=== PATIENT | male | born 1940 | race Caucasian/White ===

== ENCOUNTER 2020-04-02 22:46 | Inpatient (IN) | payer OTHER, MEDICARE ==
[2020-04-02] MEDS ORDERED: DEXAMETHASONE SOD PHOSPHATE INJ 4 MG/1 ML VIAL IV ONE (22:59)
--- NOTE | 2020-04-02 23:00 | ER Document Report ---
ED General - General Chief Complaint: Shortness Of Breath Stated Complaint: SHORTNESS OF BREATH Time Seen by Provider: 04/02/20 22:52 Primary Care Provider: KAYE,BERTRAM [Primary Care Provider] - Follow up as needed - [facility] Notes: 79-year-old male presents with shortness of breath. Patient is Covid positive. Patient states that he developed symptoms on Monday night, he actually tested negative on Monday, then tested positive on Monday. He states that he is overall been doing fairly well, he has mostly been battling fever and shaking. He states that however tonight he was watching TV, had sudden onset of shaking and acute shortness of breath. He reports shortness of breath was better when he was sitting up. His cough is occasionally productive of a phlegm. EMS was called and found him to be 85% on room air, nonrebreather was applied and sats improved to 92 to 94%. Patient is a former smoker, he quit in 1989. He had a CABG in 1989, he also has hypertension and hyperlipidemia, he reports reports with his medications. No chest pain, abdominal pain, vomiting or diarrhea. He denies history of lung disease. Past Medical History - General Information source: Patient - Social History Smoking Status: Former Smoker Family History: Reviewed & Not Pertinent - Past Medical History Cardiac Medical History: Reports: Hx Coronary Artery Disease, Hx Hypercholesterolemia, Hx Hypertension Review of Systems - Review of Systems Constitutional: Chills, Fever EENT: No symptoms reported Cardiovascular: denies: Chest pain Respiratory: Cough, Short of breath Gastrointestinal: denies: Abdominal pain, Diarrhea, Nausea, Vomiting Genitourinary: No symptoms reported Male Genitourinary: No symptoms reported Musculoskeletal: No symptoms reported Skin: No symptoms reported Hematologic/Lymphatic: No symptoms reported Neurological/Psychological: No symptoms reported Physical Exam - Vital signs Vitals: Temp 99.2 F 04/02/20 22:47 - General General appearance: Alert - HEENT Head: Normocephalic, Atraumatic Extraocular movements intact: Yes Pupils: PERRL - Respiratory Respiratory status: Tachypnea Breath sounds: Nonproductive cough, Rhonchi - Bases - Cardiovascular Rhythm: Regular Heart sounds: Normal auscultation - Abdominal Inspection: Obese Tenderness: Nontender - Extremities General lower extremity: No: Edema - Neurological Neuro grossly intact: Yes Cognition: Normal Orientation: AAOx4 - Psychological Associated symptoms: Normal affect - Skin Skin Temperature: Warm Course - Re-evaluation Re-evalutation: 79-year-old male on approximately day 6 of Covid illness here for acute onset of shortness of breath tonight. Found to be hypoxic with EMS, sats improving with supplemental oxygen. Patient is alert and actually fairly well-appearing, he does have coarse rhonchi at bases. He is maintaining O2 saturations on 4 L nasal cannula. Suspect that his symptoms are due to known Covid infection. He denies chest pain at this time and EKG is nonischemic. Will start with IV Decadron. Check chest x-ray and Covid related labs. Patient will need admission. 04/03/20 01:21 Into check on patient, he looks clinically improved and states he is feeling much better. Discussed with him need for admission for Covid treatment given his hypoxia/new oxygen requirement No leukocytosis. No acute anemia. Mild lymphopia. Slight hyponatremia. Electrolytes otherwise okay. D-dimer, ferritin, LDH and CRP all elevated which goes with his known Covid infection. Patient does not appear to be vitamin D deficient. Chest x-ray with changes suggestive of Covid. 04/03/20 02:19 Discussed with the hospital service for admission. - Vital Signs Vital signs: Temp Pulse Resp BP Pulse Ox 99.2 F 74 24 H 139/54 H 93 04/02/20 22:47 04/03/20 01:19 04/03/20 01:19 04/03/20 01:19 04/03/20 01:19 - Laboratory Results Result Diagrams: 04/02/20 23:15 04/02/20 23:15 Laboratory Results Interpreted: 04/02/20 04/02/20 04/02/20 23:15 23:15 23:15 RBC 4.34 L Lymph % (Auto) 9.0 L Seg Neutrophils % 82.4 H D-Dimer Sodium 132.3 L Glucose 173 H Calcium 8.0 L Ferritin 630.00 H Lactate Dehydrogenase 406 H C-Reactive Protein 147.3 H Total Protein 6.2 L Albumin 3.3 L Vitamin D 25-Hydroxy 76.2 H 04/02/20 23:15 RBC Lymph % (Auto) Seg Neutrophils % D-Dimer 1.53 H Sodium Glucose Calcium Ferritin Lactate Dehydrogenase C-Reactive Protein Total Protein Albumin Vitamin D 25-Hydroxy Critical Laboratory Results Reviewed: No Critical Results - Radiology Results Critical Radiology Results Reviewed: No Critical Results - EKG Interpretation by Me Additional EKG results interpreted by me: EKG is interpreted by me. Sinus rhythm, rate 76. QRS 106, QTC within normal limits. Nonspecific ST changes. No STEMI. Discharge - Discharge Clinical Impression: Acute respiratory disease due to COVID-19 virus Disposition: ADMITTED INPATIENT Admitting Provider: [facility] Unit Admitted: Medical Floor [facility]errals: [facility] [[facility]] - Follow up as needed
[2020-04-02 23:28] LABS: ABSOLUTE LYMPHOCYTES (AUTO) 0.5 10^3/uL (0.5-4.7); ABSOLUTE MONOCYTES (AUTO) 0.4 10^3/uL (0.1-1.4); ABSOLUTE NEUT (AUTO) 4.4 10^3/uL (1.7-8.2); BASOPHILS % (AUTO) 0.7 % (0-2); HEMATOCRIT 39.8 % (37.9-51.0); HEMOGLOBIN 14.2 g/dL (13.5-17.0); MEAN CORPUSCULAR HEMOGLOBIN 32.6 pg (27.0-33.4); MEAN CORPUSCULAR HGB CONC 35.5 g/dL (32.0-36.0); MEAN CORPUSCULAR VOLUME 92 fl (80-97); MONOCYTES % (AUTO) 7.9 % (3-13); PLATELET COUNT 159 10^3/uL (150-450); RED BLOOD COUNT 4.34 10^6/uL (4.35-5.55); RED CELL DISTRIBUTION WIDTH 13.6 % (11.5-14.0); SEGMENTED NEUTROPHILS % (AUTO) 82.4 % (42-78); TOTAL CELLS COUNTED % (AUTO) 100 %; WHITE BLOOD COUNT 5.3 10^3/uL (4.0-10.5)
--- NOTE | 2020-04-02 23:29 | RADIOLOGY REPORT (SQ) ---
EXAM DESCRIPTION: Site: CHEST SINGLE VIEW RP: XR CHEST 1 VIEW CLINICAL HISTORY: 79 years Male; covid; COMPARISON: None. FINDINGS: Lungs: There are patchy alveolar/interstitial infiltrates in the right lung, mostly involving the right upper lobe. No focal consolidation. No pneumothorax or pleural effusion. Mediastinum: Sternal wires are noted. No mediastinal widening or shift. Bones: Bony structures are unremarkable. IMPRESSION: 1. Infiltrates, mostly involving right upper lobe, consistent with atypical/viral pneumonia
[2020-04-02 23:46] LABS: ALBUMIN 3.3 g/dL (3.5-5.0); ALKALINE PHOSPHATASE 64 U/L (38-126); ANION GAP 6 (5-19); ASPARTATE AMINO TRANSFERASE 57 U/L (17-59); BILIRUBIN,DIRECT 0.2 mg/dL (0.0-0.4); BILIRUBIN,TOTAL 0.4 mg/dL (0.2-1.3); BLOOD UREA NITROGEN 17 mg/dL (7-20); CARBON DIOXIDE 24 mmol/L (22-30); CHLORIDE 102 mmol/L (98-107); GLUCOSE 173 mg/dL (75-110); POTASSIUM 4.1 mmol/L (3.6-5.0); TOTAL PROTEIN 6.2 g/dL (6.3-8.2)
[2020-04-03 00:05] LABS: C-REACTIVE PROTEIN 147.3 mg/L (<10.0)
[2020-04-03 02:34] LABS: ARTERIAL BLOOD H2CO3 0.79 mmol/L (1.05-1.35); ARTERIAL BLOOD HCO3 17.4 mmol/L (20-24); ARTERIAL BLOOD O2 SATURATION 91.1 % (94-98); ARTERIAL BLOOD PCO2 26.3 mmHg (35-45); ARTERIAL BLOOD PH 7.44 (7.35-7.45); ARTERIAL BLOOD PO2 56.8 mmHg (80-100); ARTERIAL BLOOD TOTAL CO2 18.2 mmol/L (23-27)
[2020-04-03 02:36] LABS: ARTERIAL BLOOD FIO2 4L
[2020-04-03] MEDS ORDERED: PROMETHAZINE HCL INJ 25 MG/1 ML VIAL IV PRN (02:36)
[2020-04-03] MEDS ORDERED: AZITHROMYCIN 250 MG TABLET PO ONE (03:00)
[2020-04-03] MEDS ORDERED: ENOXAPARIN SODIUM INJ 100 MG/1 ML DISP.SYRIN SUBCUT ONE (03:00)
--- NOTE | 2020-04-03 03:01 | PDOC H&P ---
History of Present Illness Admission Date/PCP: 04/03/20 02:26 [facility] Patient complains of: Shortness of breath History of Present Illness: DELL DUMONT is a 79 year old male with a history of hypertension, hyperlipidemia, CAD status post CABG in the 90s who now presents with 5 days duration of fever, chills, generalized body aches. He states that he was tested for COVID-19 on 03/2018 and was positive. 3 days back he started having shortness of breath which progressively got worse. Also reports associated cough productive of scanty whitish sputum. He denies any chest pain, palpitation, nausea, vomiting, abdominal pain, diarrhea. Patient was found to be saturating 85% by EMS and currently is requiring 4 L intranasal oxygen to saturate 92 to 94%. Past Medical History Cardiac Medical History: Reports: Coronary Artery Disease, Hyperlipidema, Hypertension Social History Information Source: Patient Smoking Status: Former Smoker Frequency of Alcohol Use: None Hx Recreational Drug Use: Yes Drugs: None - Advance Directive Resuscitation Status: Full Code Family History Family History: Reviewed & Not Pertinent Parental Family History Reviewed: Yes Children Family History Reviewed: Yes Sibling(s) Family History Reviewed.: Yes Review of Systems Constitutional: PRESENT: as per HPI, fever(s). ABSENT: chills, headache(s), weight gain, weight loss Eyes: ABSENT: visual disturbances Ears: ABSENT: hearing changes Cardiovascular: PRESENT: as per HPI, dyspnea on exertion, edema. ABSENT: chest pain, orthropnea, palpitations Respiratory: PRESENT: as per HPI Gastrointestinal: ABSENT: abdominal pain, constipation, diarrhea, hematemesis, hematochezia, nausea, vomiting Genitourinary: ABSENT: dysuria, hematuria Musculoskeletal: ABSENT: joint swelling Integumentary: ABSENT: rash, wounds Neurological: ABSENT: abnormal gait, abnormal speech, confusion, dizziness, focal weakness, syncope Psychiatric: ABSENT: anxiety, depression, homidical ideation, suicidal ideation Endocrine: ABSENT: cold intolerance, heat intolerance, polydipsia, polyuria Hematologic/Lymphatic: ABSENT: easy bleeding, easy bruising Physical Exam Vital Signs: Temp Pulse Resp BP Pulse Ox 99.2 F 74 24 H 139/54 H 93 04/02/20 22:47 04/03/20 01:19 04/03/20 01:19 04/03/20 01:19 04/03/20 01:19 Intake & Output 04/01/20 04/02/20 04/03/20 06:59 06:59 06:59 Weight 97.522 kg Additional comments: GENERAL APPEARANCE: Alert and oriented x3, currently on 4 L intranasal oxygen saturating 92% HEENT: Normocephalic and atraumatic. No scleral icterus. Moist oral mucosa NECK: Supple. No lymphadenopathy or tenderness. No JVD CHEST: Symmetric. Nontender to palpation. LUNGS: Has good air entry, has crackles in the right middle and upper lung field. No wheezing appreciated HEART: Regular rate and rhythm with normal S1 and S2. No murmurs, gallops, or rubs. ABDOMEN: soft, active bowel sounds, no direct or rebound tenderness. No organomegaly detected. EXTREMITIES: No cyanosis, clubbing, or edema. MUSCULOSKELETAL: No deformity, atrophy or swelling noted PSYCHIATRIC: Recent and remote memory is intact. Appropriate mood and affect. SKIN: Warm, dry, and well perfused. No lesions or rashes are noted. NEUROLOGIC: No focal sensory or motor deficits are noted. Results Laboratory Results: 04/02/20 23:15 04/02/20 23:15 04/02/20 04/02/20 04/03/20 23:15 23:15 02:28 WBC 5.3 RBC 4.34 L Hgb 14.2 Hct 39.8 MCV 92 MCH 32.6 MCHC 35.5 RDW 13.6 Plt Count 159 Seg Neutrophils % 82.4 H Carbonic Acid 0.79 L HCO3/H2CO3 Ratio 22:1 ABG pH 7.44 ABG pCO2 26.3 L ABG pO2 56.8 L ABG HCO3 17.4 L ABG O2 Saturation 91.1 L ABG Base Excess -5.0 FiO2 4L Sodium 132.3 L Potassium 4.1 Chloride 102 Carbon Dioxide 24 Anion Gap 6 BUN 17 Creatinine 1.11 Est GFR ( Amer) > 60 Glucose 173 H Calcium 8.0 L Ferritin 630.00 H Total Bilirubin 0.4 AST 57 Alkaline Phosphatase 64 C-Reactive Protein 147.3 H Total Protein 6.2 L Albumin 3.3 L Impressions: Chest X-Ray 04/02/20 22:58 IMPRESSION: 1. Infiltrates, mostly involving right upper lobe, consistent with atypical/viral pneumonia Assessment and Plan - Diagnosis (1) Acute respiratory failure with hypoxia Is this a current diagnosis for this admission?: Yes Plan: Presents with shortness of breath Oxygen saturation was 85% on room initial evaluation Tested positive for COVID-19 on 03/30 Currently breathing comfortably and saturating mid 90s on 4 L intranasal oxygen Started on dexamethasone, status post ivermectin, zinc, vitamin C, vitamin D Will be started on remdesivir in the morning Closely monitor for any deterioration in his respiratory status (2) Pneumonia due to COVID-19 virus Is this a current diagnosis for this admission?: Yes Plan: Started having symptoms 5 days back and tested positive on 03/30 Currently presented with worsening of shortness of breath Ferritin, LDH, CRP and D-dimer all elevated Chest x-ray shows infiltrates involving right upper lobe Started him on therapeutic dose Lovenox Currently on dexamethasone, zinc, vitamin C, vitamin D First dose of ivermectin 21 mg was given Continue intranasal oxygen Will be started on remdesivir and convalescent plasma in the morning (3) Hyperlipemia Is this a current diagnosis for this admission?: Yes Plan: Continue statin therapy (4) CAD (coronary artery disease) Is this a current diagnosis for this admission?: Yes Plan: Currently denies any chest pain Continue aspirin and atorvastatin (5) Hx of CABG Is this a current diagnosis for this admission?: Yes Plan: Bypass surgery was done in the s Continue management as stated above under CAD (6) Hypertension Is this a current diagnosis for this admission?: Yes Plan: Blood pressure is within acceptable limits Continue home medications (7) Overweight (BMI 25.0-29.9) Is this a current diagnosis for this admission?: Yes - Time Time Spent with patient: 35 or more minutes Total Critical Time (Minutes): 45 Medications reviewed and adjusted accordingly: Yes Anticipated Discharge Disposition: Home, Self Care Anticipated Discharge Timeframe: within 72 hours - Inpatient Certification Based on my medical assessment, after consideration of the patient's comorbidities, presenting symptoms, or acuity I expect that the services needed warrant INPATIENT care.: Yes I certify that my determination is in accordance with my understanding of Medicare's requirements for reasonable and necessary INPATIENT services [42 CFR 412.3e].: Yes Medical Necessity: Failure to Improve With Outpatient Therapy, Need Close Monitoring Due to Risk of Patient Decompensation, Risk of Complication if Not Cared For in Hospital Post Hospital Care: D/C or Transfer Summary
[2020-04-03] MEDS ORDERED: IVERMECTIN 3 MG TABLET PO ONE (03:02)
[2020-04-03] MEDS ORDERED: IVERMECTIN 3 MG TABLET ONE (05:40)
[2020-04-03 07:43] LABS: ALBUMIN 3.7 g/dL (3.5-5.0); ALKALINE PHOSPHATASE 72 U/L (38-126); ANION GAP 11 (5-19); ASPARTATE AMINO TRANSFERASE 67 U/L (17-59); BILIRUBIN,DIRECT 0.3 mg/dL (0.0-0.4); BILIRUBIN,TOTAL 0.5 mg/dL (0.2-1.3); BLOOD UREA NITROGEN 16 mg/dL (7-20); CALCIUM 8.4 mg/dL (8.4-10.2); CARBON DIOXIDE 21 mmol/L (22-30); CHLORIDE 102 mmol/L (98-107); GLUCOSE 199 mg/dL (75-110); POTASSIUM 4.4 mmol/L (3.6-5.0); TOTAL PROTEIN 6.7 g/dL (6.3-8.2)
[2020-04-03] MEDS ORDERED: DEXTROSE 40% GEL 15 GM TUBE PO PRN ×2 (08:24)
[2020-04-03] MEDS ORDERED: GLUCAGON,HUMAN RECOMB 1 MG INJ IM PRN (08:24)
[2020-04-03] MEDS ORDERED: DEXTROSE 50%-WATER 25 GM/50 ML DISP.SYRIN IV PRN ×2 (08:24)
--- NOTE | 2020-04-03 08:50 | EKG REPORT ---
SEVERITY:- ABNORMAL ECG - SINUS RHYTHM PROBABLE INFERIOR INFARCT, AGE INDETERMINATE : Confirmed by: Josr Chirinos MD 03-Apr-2020 08:50:08
[2020-04-03 10:47] LABS: ABSOLUTE LYMPHOCYTES (AUTO) 0.6 10^3/uL (0.5-4.7); ABSOLUTE MONOCYTES (AUTO) 0.5 10^3/uL (0.1-1.4); ABSOLUTE NEUT (AUTO) 4.5 10^3/uL (1.7-8.2); BASOPHILS % (AUTO) 0.4 % (0-2); HEMATOCRIT 42.1 % (37.9-51.0); HEMOGLOBIN 14.7 g/dL (13.5-17.0); LYMPHOCYTES % (AUTO) 9.9 % (13-45); MEAN CORPUSCULAR HEMOGLOBIN 32.3 pg (27.0-33.4); MEAN CORPUSCULAR HGB CONC 34.9 g/dL (32.0-36.0); MEAN CORPUSCULAR VOLUME 92 fl (80-97); MONOCYTES % (AUTO) 8.9 % (3-13); RED BLOOD COUNT 4.56 10^6/uL (4.35-5.55); RED CELL DISTRIBUTION WIDTH 13.6 % (11.5-14.0); SEGMENTED NEUTROPHILS % (AUTO) 80.8 % (42-78); TOTAL CELLS COUNTED % (AUTO) 100 %; WHITE BLOOD COUNT 5.6 10^3/uL (4.0-10.5)
[2020-04-03 11:07] LABS: PLATELET COUNT 121 10^3/uL (150-450)
[2020-04-03] MEDS: ASCORBIC ACID 500 MG TABLET PO SCH ×2 (11:11→17:32)
[2020-04-03] MEDS: FAMOTIDINE 20 MG TABLET PO SCH ×2 (11:11→21:35)
[2020-04-03] MEDS: ZINC SULFATE 220 MG CAPSULE PO SCH (11:11)
[2020-04-03] MEDS: DEXAMETHASONE SOD PHOS INJ 10 MG/1 ML VIAL IV SCH (11:11)
[2020-04-03] MEDS: CEFTRIAXONE 1 GM/D5W RTU 1 GM/50 ML RTUPB IV SCH (11:11)
[2020-04-03] MEDS: CHOLECALCIFEROL (D3) 1,000 UNIT (25 MCG) TABLET PO SCH (11:11)
[2020-04-03] MEDS: INSULIN LISPRO 100 UNIT/ML 3 ML VIAL SUBCUT SCH ×3 (14:22→21:35)
[2020-04-03] MEDS: AZITHROMYCIN 250 MG TABLET PO SCH (21:35)
[2020-04-03] MEDS: ENOXAPARIN SODIUM INJ 100 MG/1 ML DISP.SYRIN SUBCUT SCH (21:36)
[2020-04-04 06:25] LABS: ABSOLUTE LYMPHOCYTES (AUTO) 0.6 10^3/uL (0.5-4.7); ABSOLUTE MONOCYTES (AUTO) 0.7 10^3/uL (0.1-1.4); ABSOLUTE NEUT (AUTO) 6.2 10^3/uL (1.7-8.2); BASOPHILS % (AUTO) 0.6 % (0-2); EOSINOPHILS % (AUTO) 0.1 % (0-6); HEMOGLOBIN 14.2 g/dL (13.5-17.0); LYMPHOCYTES % (AUTO) 8.6 % (13-45); MEAN CORPUSCULAR HEMOGLOBIN 32.1 pg (27.0-33.4); MEAN CORPUSCULAR HGB CONC 34.7 g/dL (32.0-36.0); MEAN CORPUSCULAR VOLUME 93 fl (80-97); MONOCYTES % (AUTO) 8.9 % (3-13); PLATELET COUNT 188 10^3/uL (150-450); RED BLOOD COUNT 4.42 10^6/uL (4.35-5.55); RED CELL DISTRIBUTION WIDTH 13.9 % (11.5-14.0); SEGMENTED NEUTROPHILS % (AUTO) 81.8 % (42-78); TOTAL CELLS COUNTED % (AUTO) 100 %; WHITE BLOOD COUNT 7.5 10^3/uL (4.0-10.5)
[2020-04-04 06:55] LABS: ALBUMIN 3.5 g/dL (3.5-5.0); ALKALINE PHOSPHATASE 52 U/L (38-126); ANION GAP 12 (5-19); ASPARTATE AMINO TRANSFERASE 87 U/L (17-59); BILIRUBIN,DIRECT 0.3 mg/dL (0.0-0.4); BILIRUBIN,TOTAL 0.7 mg/dL (0.2-1.3); BLOOD UREA NITROGEN 23 mg/dL (7-20); CALCIUM 8.4 mg/dL (8.4-10.2); CARBON DIOXIDE 20 mmol/L (22-30); CHLORIDE 103 mmol/L (98-107); GLUCOSE 135 mg/dL (75-110); POTASSIUM 4.7 mmol/L (3.6-5.0); TOTAL PROTEIN 6.6 g/dL (6.3-8.2)
[2020-04-04] MEDS: INSULIN LISPRO 100 UNIT/ML 3 ML VIAL SUBCUT SCH ×4 (09:13→21:12)
[2020-04-04] MEDS: DEXAMETHASONE SOD PHOS INJ 10 MG/1 ML VIAL IV SCH (11:07)
[2020-04-04] MEDS: CHOLECALCIFEROL (D3) 1,000 UNIT (25 MCG) TABLET PO SCH (11:07)
[2020-04-04] MEDS: ZINC SULFATE 220 MG CAPSULE PO SCH (11:07)
[2020-04-04] MEDS: ASCORBIC ACID 500 MG TABLET PO SCH ×2 (11:07→17:00)
[2020-04-04] MEDS: FAMOTIDINE 20 MG TABLET PO SCH ×2 (11:07→21:12)
[2020-04-04] MEDS: ENOXAPARIN SODIUM INJ 100 MG/1 ML DISP.SYRIN SUBCUT SCH ×2 (11:08→21:11)
[2020-04-04] MEDS: CEFTRIAXONE 1 GM/D5W RTU 1 GM/50 ML RTUPB IV SCH (11:08)
[2020-04-04 15:13] LABS: ARTERIAL BLOOD BASE EXCESS -1.6 mmol/L; ARTERIAL BLOOD O2 SATURATION 96.6 % (94-98); ARTERIAL BLOOD PCO2 26.6 mmHg (35-45); ARTERIAL BLOOD TOTAL CO2 20.9 mmol/L (23-27)
[2020-04-04 15:14] LABS: ARTERIAL BLOOD FIO2 100%
--- NOTE | 2020-04-04 17:21 | PDOC PROGRESS REPORT ---
Subjective Date:: 04/04/20 Subjective:: RAFAELAO. He has had progressively increasing O2 needs over the last 48 hours. Reason For Visit: ACUTE HYPOXIC RESPIRATORY FAILURE,PNEUMONIA Physical Exam Vital Signs: Temp Pulse Resp BP Pulse Ox 98.8 F 86 18 134/55 H 91 L 04/04/20 16:09 04/04/20 16:09 04/04/20 16:09 04/04/20 16:09 04/04/20 16:09 Intake & Output 04/03/20 04/04/20 04/05/20 06:59 06:59 06:59 Intake Total 2367 520 Output Total 600 500 Balance 1767 20 Weight 97.522 kg 97.6 kg General appearance: PRESENT: no acute distress, cooperative Head exam: PRESENT: atraumatic Eye exam: ABSENT: scleral icterus Mouth exam: PRESENT: dry mucosa Throat exam: ABSENT: post pharyngeal erythema Neck exam: ABSENT: JVD Respiratory exam: PRESENT: rhonchi, tachypnea. ABSENT: crackles, wheezes Cardiovascular exam: PRESENT: RRR GI/Abdominal exam: PRESENT: normal bowel sounds, soft. ABSENT: tenderness Gentrourinary exam: ABSENT: indwelling catheter Extremities exam: ABSENT: pedal edema Musculoskeletal exam: PRESENT: ambulatory Neurological exam: PRESENT: alert, awake, oriented to person, oriented to place, oriented to time, oriented to situation Psychiatric exam: PRESENT: appropriate affect Skin exam: ABSENT: jaundice, rash Results Laboratory Results: 04/04/20 06:16 04/04/20 06:16 04/04/20 04/04/20 04/04/20 06:16 06:16 14:20 WBC 7.5 RBC 4.42 Hgb 14.2 Hct 41.0 MCV 93 MCH 32.1 MCHC 34.7 RDW 13.9 Plt Count 188 Seg Neutrophils % 81.8 H Carbonic Acid 0.80 L HCO3/H2CO3 Ratio 25:1 ABG pH 7.50 H ABG pCO2 26.6 L ABG pO2 78.0 L ABG HCO3 20.0 ABG O2 Saturation 96.6 ABG Base Excess -1.6 FiO2 100% Sodium 134.5 L Potassium 4.7 Chloride 103 Carbon Dioxide 20 L Anion Gap 12 BUN 23 H Creatinine 0.93 Est GFR ( Amer) > 60 Glucose 135 H Calcium 8.4 Total Bilirubin 0.7 AST 87 H Alkaline Phosphatase 52 Total Protein 6.6 Albumin 3.5 Impressions: Chest X-Ray 04/02/20 22:58 IMPRESSION: 1. Infiltrates, mostly involving right upper lobe, consistent with atypical/viral pneumonia Assessment and Plan - Diagnosis (1) Elevated AST (SGOT) Is this a current diagnosis for this admission?: Yes (2) Pre-diabetes Is this a current diagnosis for this admission?: Yes (3) Acute respiratory disease due to COVID-19 virus Is this a current diagnosis for this admission?: Yes (4) Acute respiratory failure with hypoxia Is this a current diagnosis for this admission?: Yes (5) CAD (coronary artery disease) Is this a current diagnosis for this admission?: Yes (6) Hx of CABG Is this a current diagnosis for this admission?: Yes (7) Hyperlipemia Is this a current diagnosis for this admission?: Yes (8) Hypertension Is this a current diagnosis for this admission?: Yes (9) Overweight (BMI 25.0-29.9) Is this a current diagnosis for this admission?: Yes (10) Pneumonia due to COVID-19 virus Is this a current diagnosis for this admission?: Yes - Plan Summary Summary: DELL DUMONT is a 79 year old male with PMH of hypertension, hyperlipidemia, CAD status post CABG in the s who presented on 04/02/2020 with 5 days duration of fever, chills, generalized body aches and 3 days of worsening SOB and productive cough. He had already been tested for Covid-19 several days prior to presentation and was positive. He denied any chest pain, palpitation, nausea, vo miting, abdominal pain, diarrhea. He was found to be saturating 85% on RA by EMS. RUL Pneumonia due to COVID-19 virus: CXR shows right upper lobe infiltrate - continue dexamethasone x10 days - continue ivermectin on days 1 and 3 - continue zinc, vitamin C, vitamin D and B-complex - Ferritin, LDH, CRP and D-dimer all elevate, will trend - continue therapeutic Lovenox Acute respiratory failure with hypoxemia: initially tested positive for COVID-19 on 03/30. He has had progressively increasing oxygen requirements throughout his hospital stay. - he remains hypoxic on 15 L O2 today, so will transition to high flow NC - repeat ABG in 1 hour CAD s/p CABG - continue aspirin and atorvastatin Hypertension: BP is within acceptable limits - continue home medications Pre-diabetes: HbA1c 5.7% - carb controlled diet - encourage weight loss LFT Elevated: AST increasing steadily, likely due to viral infection. He denies ETOH use. If continued rise, may need to hold statin. - monitor CMP daily - Time Time Spent with patient: 35 or more minutes Anticipated Discharge Disposition: Home with Home Health Anticipated Discharge Timeframe: within 72 hours
[2020-04-04 18:38] LABS: ARTERIAL BLOOD BASE EXCESS -2.2 mmol/L; ARTERIAL BLOOD H2CO3 0.82 mmol/L (1.05-1.35); ARTERIAL BLOOD HCO3 19.7 mmol/L (20-24); ARTERIAL BLOOD O2 SATURATION 91.8 % (94-98); ARTERIAL BLOOD PCO2 27.2 mmHg (35-45); ARTERIAL BLOOD PH 7.48 (7.35-7.45); ARTERIAL BLOOD PO2 56.4 mmHg (80-100); ARTERIAL BLOOD TOTAL CO2 20.5 mmol/L (23-27)
[2020-04-04 18:39] LABS: ARTERIAL BLOOD FIO2 75%
[2020-04-04] MEDS: ATORVASTATIN CALCIUM 40 MG TABLET PO SCH (21:12)
[2020-04-04] MEDS: AZITHROMYCIN 250 MG TABLET PO SCH (21:12)
[2020-04-05] MEDS: LEVOTHYROXINE SODIUM 0.05 MG TABLET PO SCH (05:14)
[2020-04-05 07:24] LABS: ABSOLUTE BASOPHILS # (AUTO) 0.2 10^3/uL (0.0-0.2); ABSOLUTE MONOCYTES (AUTO) 0.6 10^3/uL (0.1-1.4); BASOPHILS % (AUTO) 1.9 % (0-2); HEMATOCRIT 41.8 % (37.9-51.0); HEMOGLOBIN 14.3 g/dL (13.5-17.0); LYMPHOCYTES % (AUTO) 10.4 % (13-45); MEAN CORPUSCULAR HEMOGLOBIN 31.7 pg (27.0-33.4); MEAN CORPUSCULAR HGB CONC 34.1 g/dL (32.0-36.0); MEAN CORPUSCULAR VOLUME 93 fl (80-97); MONOCYTES % (AUTO) 6.1 % (3-13); RED CELL DISTRIBUTION WIDTH 13.8 % (11.5-14.0); SEGMENTED NEUTROPHILS % (AUTO) 81.6 % (42-78); TOTAL CELLS COUNTED % (AUTO) 100 %; WHITE BLOOD COUNT 9.8 10^3/uL (4.0-10.5)
[2020-04-05 07:33] LABS: ALBUMIN 3.2 g/dL (3.5-5.0); ALKALINE PHOSPHATASE 67 U/L (38-126); ASPARTATE AMINO TRANSFERASE 100 U/L (17-59); BILIRUBIN,DIRECT 0.2 mg/dL (0.0-0.4); BILIRUBIN,TOTAL 0.7 mg/dL (0.2-1.3); BLOOD UREA NITROGEN 28 mg/dL (7-20); CALCIUM 8.3 mg/dL (8.4-10.2); CARBON DIOXIDE 19 mmol/L (22-30); GLUCOSE 144 mg/dL (75-110); POTASSIUM 4.5 mmol/L (3.6-5.0); TOTAL PROTEIN 6.3 g/dL (6.3-8.2)
[2020-04-05 07:45] LABS: ANION GAP 9 (5-19); CHLORIDE 105 mmol/L (98-107)
[2020-04-05] MEDS ORDERED: IVERMECTIN 3 MG TABLET PO SCH (08:00)
[2020-04-05 08:22] LABS: PLATELET COUNT 218 10^3/uL (150-450)
[2020-04-05] MEDS: INSULIN LISPRO 100 UNIT/ML 3 ML VIAL SUBCUT SCH ×4 (08:37→21:47)
[2020-04-05 09:35] LABS: ARTERIAL BLOOD BASE EXCESS -0.2 mmol/L; ARTERIAL BLOOD H2CO3 0.85 mmol/L (1.05-1.35); ARTERIAL BLOOD HCO3 21.7 mmol/L (20-24); ARTERIAL BLOOD O2 SATURATION 93.6 % (94-98); ARTERIAL BLOOD PCO2 28.2 mmHg (35-45); ARTERIAL BLOOD PO2 60.4 mmHg (80-100); ARTERIAL BLOOD TOTAL CO2 22.6 mmol/L (23-27)
[2020-04-05] MEDS: ASCORBIC ACID 500 MG TABLET PO SCH ×2 (10:58→17:01)
[2020-04-05] MEDS: FAMOTIDINE 20 MG TABLET PO SCH ×2 (10:58→21:48)
[2020-04-05] MEDS: ZINC SULFATE 220 MG CAPSULE PO SCH (10:58)
[2020-04-05] MEDS: CEFTRIAXONE 1 GM/D5W RTU 1 GM/50 ML RTUPB IV SCH (10:59)
[2020-04-05] MEDS: DEXAMETHASONE SOD PHOS INJ 10 MG/1 ML VIAL IV SCH (10:59)
[2020-04-05] MEDS: CHOLECALCIFEROL (D3) 1,000 UNIT (25 MCG) TABLET PO SCH (10:59)
[2020-04-05] MEDS: ENOXAPARIN SODIUM INJ 100 MG/1 ML DISP.SYRIN SUBCUT SCH ×2 (11:00→21:49)
[2020-04-05] MEDS ORDERED: FUROSEMIDE INJ/PF 20 MG/2 ML SDV IV ONE (16:30)
--- NOTE | 2020-04-05 19:03 | PDOC PROGRESS REPORT ---
Subjective Date:: 04/05/20 Subjective:: He is becoming more SOB and has increased WOB. Desaturates when lying down in bed but feels more comfortable sitting upright in recliner. Reason For Visit: ACUTE HYPOXIC RESPIRATORY FAILURE,PNEUMONIA Physical Exam Vital Signs: Temp Pulse Resp BP Pulse Ox 98.7 F 74 20 130/54 H 95 04/05/20 16:30 04/05/20 16:30 04/05/20 16:30 04/05/20 16:30 04/05/20 16:30 Intake & Output 04/04/20 04/05/20 04/06/20 06:59 06:59 06:59 Intake Total 2367 950 830 Output Total 008 580 6538 Balance 9560 -7 -032 Weight 97.6 kg 97 kg General appearance: PRESENT: no acute distress, cooperative Eye exam: ABSENT: scleral icterus Mouth exam: PRESENT: moist Throat exam: ABSENT: post pharyngeal erythema Neck exam: ABSENT: JVD Respiratory exam: PRESENT: crackles, rhonchi, tachypnea. ABSENT: wheezes Cardiovascular exam: PRESENT: RRR GI/Abdominal exam: PRESENT: normal bowel sounds, soft. ABSENT: tenderness Gentrourinary exam: ABSENT: indwelling catheter Extremities exam: PRESENT: pedal edema Neurological exam: PRESENT: alert, awake, oriented to person, oriented to place, oriented to time, oriented to situation Psychiatric exam: PRESENT: appropriate affect Skin exam: ABSENT: jaundice Results Laboratory Results: 04/05/20 06:59 04/05/20 06:59 04/05/20 04/05/20 04/05/20 06:59 06:59 09:00 WBC 9.8 RBC 4.50 Hgb 14.3 Hct 41.8 MCV 93 MCH 31.7 MCHC 34.1 RDW 13.8 Plt Count 218 Seg Neutrophils % 81.6 H Carbonic Acid 0.85 L HCO3/H2CO3 Ratio 25:1 ABG pH 7.50 H ABG pCO2 28.2 L ABG pO2 60.4 L ABG HCO3 21.7 ABG O2 Saturation 93.6 L ABG Base Excess -0.2 FiO2 88% Sodium 133.2 L Potassium 4.5 Chloride 105 Carbon Dioxide 19 L Anion Gap 9 BUN 28 H Creatinine 0.94 Est GFR ( Amer) > 60 Glucose 144 H Calcium 8.3 L Total Bilirubin 0.7 AST 100 H Alkaline Phosphatase 67 Total Protein 6.3 Albumin 3.2 L Impressions: Chest X-Ray 04/02/20 22:58 IMPRESSION: 1. Infiltrates, mostly involving right upper lobe, consistent with atypical/viral pneumonia Assessment and Plan - Diagnosis (1) Elevated AST (SGOT) Is this a current diagnosis for this admission?: Yes (2) Pre-diabetes Is this a current diagnosis for this admission?: Yes (3) Acute respiratory disease due to COVID-19 virus Is this a current diagnosis for this admission?: Yes (4) Acute respiratory failure with hypoxia Is this a current diagnosis for this admission?: Yes (5) CAD (coronary artery disease) Is this a current diagnosis for this admission?: Yes (6) Hx of CABG Is this a current diagnosis for this admission?: Yes (7) Hyperlipemia Is this a current diagnosis for this admission?: Yes (8) Hypertension Is this a current diagnosis for this admission?: Yes (9) Overweight (BMI 25.0-29.9) Is this a current diagnosis for this admission?: Yes (10) Pneumonia due to COVID-19 virus Is this a current diagnosis for this admission?: Yes - Plan Summary Summary: DELL DUMONT is a 79 year old male with PMH of hypertension, hyperlipidemia, CAD status post CABG in the 90s who presented on 04/02/2020 with 5 days duration of fever, chills, generalized body aches and 3 days of worsening SOB and productive cough. He had already been tested for Covid-19 several days prior to presentation and was positive. He denied any chest pain, palpitation, nausea, vomiting, abdominal pain, diarrhea. He was found to be saturating 85% on RA by EMS. RUL Pneumonia due to COVID-19 virus: CXR shows right upper lobe infiltrate - continue dexamethasone x10 days - continue ivermectin on days 1 and 3 - continue zinc, vitamin C, vitamin D and B-complex - Ferritin, LDH, CRP and D-dimer all elevate, will trend - continue therapeutic Lovenox Acute respiratory failure with hypoxemia: initially tested positive for COVID-19 on 03/30. He has had progressively increasing oxygen requirements throughout his hospital stay. FiO2 maxed out on high flow NC today and now saturations are in the high 90s. I offered to transition to CPAP so he could sleep in bed, but he declined, saying he prefers to sit upright in the recliner instead. Orthopnea: he appears slightly volume overloaded on exam today. Will give a single dose of Lasix 20 mg IV and reassess tomorrow. CAD s/p CABG: continue aspirin and atorvastatin Hypertension: BP is within acceptable limits Pre-diabetes: HbA1c 5.7% - carb controlled diet - encourage weight loss LFT Elevated: likely due to viral infection. He denies ETOH use. If continued rise, may need to hold statin. - monitor CMP daily - Time Time Spent with patient: 35 or more minutes Anticipated Discharge Disposition: Home, Self Care Anticipated Discharge Timeframe: within 72 hours
[2020-04-05] MEDS: ATORVASTATIN CALCIUM 40 MG TABLET PO SCH (21:48)
[2020-04-05] MEDS: AZITHROMYCIN 250 MG TABLET PO SCH (21:48)
[2020-04-06] MEDS: LEVOTHYROXINE SODIUM 0.05 MG TABLET PO SCH (05:18)
[2020-04-06 07:05] LABS: ARTERIAL BLOOD BASE EXCESS -0.1 mmol/L; ARTERIAL BLOOD H2CO3 0.96 mmol/L (1.05-1.35); ARTERIAL BLOOD HCO3 22.8 mmol/L (20-24); ARTERIAL BLOOD O2 SATURATION 94.7 % (94-98); ARTERIAL BLOOD PH 7.47 (7.35-7.45); ARTERIAL BLOOD PO2 67.5 mmHg (80-100); ARTERIAL BLOOD TOTAL CO2 23.7 mmol/L (23-27)
[2020-04-06 07:08] LABS: ARTERIAL BLOOD FIO2 100%
[2020-04-06 07:15] LABS: ALKALINE PHOSPHATASE 79 U/L (38-126); ANION GAP 12 (5-19); ASPARTATE AMINO TRANSFERASE 90 U/L (17-59); BILIRUBIN,DIRECT 0.3 mg/dL (0.0-0.4); BILIRUBIN,TOTAL 0.9 mg/dL (0.2-1.3); BLOOD UREA NITROGEN 32 mg/dL (7-20); CALCIUM 8.6 mg/dL (8.4-10.2); CARBON DIOXIDE 22 mmol/L (22-30); CHLORIDE 101 mmol/L (98-107); GLUCOSE 158 mg/dL (75-110); POTASSIUM 4.4 mmol/L (3.6-5.0); TOTAL PROTEIN 6.6 g/dL (6.3-8.2)
[2020-04-06 07:23] LABS: HEMATOCRIT 40.1 % (37.9-51.0); MEAN CORPUSCULAR HEMOGLOBIN 32.3 pg (27.0-33.4); MEAN CORPUSCULAR HGB CONC 34.8 g/dL (32.0-36.0); MEAN CORPUSCULAR VOLUME 93 fl (80-97); RED BLOOD COUNT 4.33 10^6/uL (4.35-5.55); RED CELL DISTRIBUTION WIDTH 13.5 % (11.5-14.0); WHITE BLOOD COUNT 8.6 10^3/uL (4.0-10.5)
[2020-04-06 07:25] LABS: PLATELET COUNT 139 10^3/uL (150-450)
[2020-04-06 07:27] LABS: ALBUMIN 3.4 g/dL (3.5-5.0)
[2020-04-06] MEDS: INSULIN LISPRO 100 UNIT/ML 3 ML VIAL SUBCUT SCH ×4 (08:46→21:25)
[2020-04-06] MEDS: FAMOTIDINE 20 MG TABLET PO SCH ×2 (09:41→21:18)
[2020-04-06] MEDS: ASCORBIC ACID 500 MG TABLET PO SCH ×2 (09:41→17:01)
[2020-04-06] MEDS: DEXAMETHASONE SOD PHOS INJ 10 MG/1 ML VIAL IV SCH (09:41)
[2020-04-06] MEDS: CHOLECALCIFEROL (D3) 1,000 UNIT (25 MCG) TABLET PO SCH (09:42)
[2020-04-06] MEDS: CEFTRIAXONE 1 GM/D5W RTU 1 GM/50 ML RTUPB IV SCH (09:42)
[2020-04-06] MEDS: ENOXAPARIN SODIUM INJ 100 MG/1 ML DISP.SYRIN SUBCUT SCH ×2 (09:42→21:19)
[2020-04-06] MEDS: ZINC SULFATE 220 MG CAPSULE PO SCH (09:43)
[2020-04-06 13:25] LABS: APPEARANCE,URINE CLEAR; BILIRUBIN,URINE NEGATIVE (NEGATIVE); COLOR,URINE YELLOW; GLUCOSE, URINE NEGATIVE (NEGATIVE); KETONES,URINE NEGATIVE (NEGATIVE); LEUKOCYTE ESTERASE,URINE NEGATIVE (NEGATIVE); NITRITE,URINE NEGATIVE (NEGATIVE); PROTEIN,URINE 100 mg/dL (NEGATIVE); URINE SPECIFIC GRAVITY 1.021; UROBILINOGEN,URINE NEGATIVE mg/dL (<2.0)
--- NOTE | 2020-04-06 16:46 | PDOC PROGRESS REPORT ---
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 He states that he was tested for COVID- 19 on 03/2018 and was positive. 3 days back he started having shortness of breath which progressively got worse. Also reports associated cough productive of scanty whitish sputum. He denies any chest pain, palpitation, nausea, vomiting, abdominal pain, diarrhea. Patient was found to be saturating 85% by EMS and currently is requiring 4 L intranasal oxygen to saturate 92 to 94%. D4 hospital stay Patient was seen and examined at bedside. He is sitting on a recliner on HFNC 60L, 75% FIO2. He has dyspnea on exertion but he is otherwise stable. Reason For Visit: ACUTE HYPOXIC RESPIRATORY FAILURE,PNEUMONIA Physical Exam Vital Signs: Temp Pulse Resp BP Pulse Ox 97.9 F 82 17 123/55 L 94 04/06/20 11:53 04/06/20 14:00 04/06/20 16:00 04/06/20 11:53 04/06/20 16:00 Intake & Output 04/05/20 04/06/20 04/07/20 06:59 06:59 06:59 Intake Total 950 830 570 Output Total 951 2550 300 Balance -1 -1720 270 Weight 97 kg 98.1 kg General appearance: PRESENT: cooperative, other - moderate distress Head exam: PRESENT: atraumatic, normocephalic Eye exam: PRESENT: EOMI, PERRLA Mouth exam: PRESENT: moist Neck exam: PRESENT: full ROM Respiratory exam: PRESENT: rales, symmetrical, tachypnea Cardiovascular exam: PRESENT: RRR, +S1, +S2 Pulses: PRESENT: +2 pedal pulses bilateral GI/Abdominal exam: PRESENT: normal bowel sounds, soft. ABSENT: rebound, tenderness Extremities exam: PRESENT: full ROM Musculoskeletal exam: PRESENT: full ROM Neurological exam: PRESENT: alert, awake, oriented to person, oriented to place, oriented to time, oriented to situation Psychiatric exam: PRESENT: normal mood Skin exam: PRESENT: normal color Results Laboratory Results: 04/06/20 06:35 04/06/20 06:35 04/06/20 04/06/20 04/06/20 06:35 06:35 06:52 WBC 8.6 RBC 4.33 L Hgb 14.0 Hct 40.1 MCV 93 MCH 32.3 MCHC 34.8 RDW 13.5 Plt Count 139 L Carbonic Acid 0.96 L HCO3/H2CO3 Ratio 23:1 ABG pH 7.47 H ABG pCO2 32.0 L ABG pO2 67.5 L ABG HCO3 22.8 ABG O2 Saturation 94.7 ABG Base Excess -0.1 FiO2 100% Sodium 134.7 L Potassium 4.4 Chloride 101 Carbon Dioxide 22 Anion Gap 12 BUN 32 H Creatinine 0.97 Est GFR ( Amer) > 60 Glucose 158 H Calcium 8.6 Total Bilirubin 0.9 AST 90 H Alkaline Phosphatase 79 Total Protein 6.6 Albumin 3.4 L Urine Color Urine Appearance Urine pH Ur Specific [place] Urine Protein Urine Glucose (UA) Urine Ketones Urine Blood Urine Nitrite Ur Leukocyte Esterase Urine WBC (Auto) Urine RBC (Auto) 04/06/20 11:03 WBC RBC Hgb Hct MCV MCH MCHC RDW Plt Count Carbonic Acid HCO3/H2CO3 Ratio ABG pH ABG pCO2 ABG pO2 ABG HCO3 ABG O2 Saturation ABG Base Excess FiO2 Sodium Potassium Chloride Carbon Dioxide Anion Gap BUN Creatinine Est GFR ( Amer) Glucose Calcium Total Bilirubin AST Alkaline Phosphatase Total Protein Albumin Urine Color YELLOW Urine Appearance CLEAR Urine pH 6.0 Ur Specific [place] 1.021 Urine Protein 100 H Urine Glucose (UA) NEGATIVE Urine Ketones NEGATIVE Urine Blood NEGATIVE Urine Nitrite NEGATIVE Ur Leukocyte Esterase NEGATIVE Urine WBC (Auto) 1 Urine RBC (Auto) 0 Impressions: Chest X-Ray 04/02/20 22:58 IMPRESSION: 1. Infiltrates, mostly involving right upper lobe, consistent with atypical/viral pneumonia Assessment and Plan - Diagnosis (1) Acute respiratory failure with hypoxia Is this a current diagnosis for this admission?: Yes Plan: Presents with shortness of breath Oxygen saturation was 85% on room initial evaluation Tested positive for COVID-19 on 03/30 On BIpap 75% FIO2, 60L flow Started on dexamethasone, status post ivermectin, zinc, vitamin C, vitamin D patient has AST/ALT elevation so remdesivir is not an option Closely monitor for any deterioration in his respiratory status (2) Pneumonia due to COVID-19 virus Is this a current diagnosis for this admission?: Yes Plan: Started having symptoms 5 days back and tested positive on 03/30 Currently presented with worsening of shortness of breath Ferritin, LDH, CRP and D-dimer all elevated Chest x-ray shows infiltrates involving right upper lobe Started him on therapeutic dose Lovenox Currently on dexamethasone, zinc, vitamin C, vitamin D completed Ivermectin Continue BIPAP support (3) Hx of CABG Is this a current diagnosis for this admission?: Yes Plan: Bypass surgery was done in the Continue management as stated above under CAD (4) Hypertension Qualifiers: Hypertension type: essential hypertension Qualified Code(s): I10 - Essential (primary) hypertension Is this a current diagnosis for this admission?: Yes Plan: Blood pressure is within acceptable limits Continue home medications (5) Pre-diabetes Is this a current diagnosis for this admission?: Yes Plan: - carb controlled diet - A1C 5.7 (6) CAD (coronary artery disease) Qualifiers: Coronary Disease-Associated Artery/Lesion type: [place] artery Is this a current diagnosis for this admission?: Yes Plan: Currently denies any chest pain Continue aspirin and atorvastatin (7) Transaminitis Is this a current diagnosis for this admission?: Yes Plan: - likely 2/2 acute illness -AST 100>90, ALT 60>82 - CTM - Plan Summary Summary: y - Time Medications reviewed and adjusted accordingly: Yes Anticipated Discharge Disposition: Home with Home Health Anticipated Discharge Timeframe: TBD
[2020-04-06] MEDS: ATORVASTATIN CALCIUM 40 MG TABLET PO SCH (21:18)
[2020-04-06] MEDS: AZITHROMYCIN 250 MG TABLET PO SCH (21:18)
[2020-04-07] MEDS: LEVOTHYROXINE SODIUM 0.05 MG TABLET PO SCH (05:01)
[2020-04-07 05:21] LABS: HEMATOCRIT 39.3 % (37.9-51.0); HEMOGLOBIN 13.7 g/dL (13.5-17.0); MEAN CORPUSCULAR HGB CONC 34.7 g/dL (32.0-36.0); MEAN CORPUSCULAR VOLUME 92 fl (80-97); RED BLOOD COUNT 4.26 10^6/uL (4.35-5.55); RED CELL DISTRIBUTION WIDTH 13.5 % (11.5-14.0); WHITE BLOOD COUNT 9.2 10^3/uL (4.0-10.5)
[2020-04-07 05:39] LABS: ABSOLUTE LYMPHOCYTES# (MANUAL) 0.6 10^3/uL (0.5-4.7); ABSOLUTE MONOCYTES # (MANUAL) 0.6 10^3/uL (0.1-1.4); BASOPHILS % (MANUAL) 0 % (0-2); EOSINOPHILS % (MANUAL) 0 % (0-6); LYMPHOCYTES % (MANUAL) 6 % (13-45); MONOCYTES % (MANUAL) 7 % (3-13); SEGMENTED NEUTROPHILS % (MAN) 87 % (42-78); TOTAL CELLS COUNTED 100
[2020-04-07 05:42] LABS: OVALOCYTES SLIGHT; PLATELET CLUMPS PRESENT; PLATELET COMMENT ADEQUATE; POIKILOCYTOSIS SLIGHT; POLYCHROMASIA SLIGHT; TOXIC VACUOLATION PRESENT
[2020-04-07 05:45] LABS: PLATELET COUNT 263 10^3/uL (150-450)
[2020-04-07 06:41] LABS: ALBUMIN 3.8 g/dL (3.5-5.0); ALKALINE PHOSPHATASE 84 U/L (38-126); ANION GAP 10 (5-19); ASPARTATE AMINO TRANSFERASE 88 U/L (17-59); BILIRUBIN,DIRECT 0.3 mg/dL (0.0-0.4); BILIRUBIN,TOTAL 0.9 mg/dL (0.2-1.3); BLOOD UREA NITROGEN 35 mg/dL (7-20); CARBON DIOXIDE 25 mmol/L (22-30); CHLORIDE 102 mmol/L (98-107); GLUCOSE 158 mg/dL (75-110); POTASSIUM 4.5 mmol/L (3.6-5.0); TOTAL PROTEIN 7.3 g/dL (6.3-8.2)
[2020-04-07] MEDS: INSULIN LISPRO 100 UNIT/ML 3 ML VIAL SUBCUT SCH ×4 (09:07→22:09)
[2020-04-07] MEDS: FAMOTIDINE 20 MG TABLET PO SCH ×2 (09:50→22:08)
[2020-04-07] MEDS: ENOXAPARIN SODIUM INJ 100 MG/1 ML DISP.SYRIN SUBCUT SCH ×2 (09:50→22:08)
[2020-04-07] MEDS: CHOLECALCIFEROL (D3) 1,000 UNIT (25 MCG) TABLET PO SCH (09:50)
[2020-04-07] MEDS: CEFTRIAXONE 1 GM/D5W RTU 1 GM/50 ML RTUPB IV SCH (09:51)
[2020-04-07] MEDS: DEXAMETHASONE SOD PHOS INJ 10 MG/1 ML VIAL IV SCH (09:51)
[2020-04-07] MEDS: ASCORBIC ACID 500 MG TABLET PO SCH ×2 (09:51→17:33)
[2020-04-07] MEDS: ZINC SULFATE 220 MG CAPSULE PO SCH (09:52)
[2020-04-07] MEDS ORDERED: REMDESIVIR 200 MG in NORMAL SALINE 250 ML IV ONE (10:00)
--- NOTE | 2020-04-07 14:58 | PDOC PROGRESS REPORT ---
Subjective Date:: 04/07/20 Subjective:: DELL DUMONT is a 79 year old male with a history of hypertension, hyperlipide dylan, CAD status post CABG in the s who now presents with 5 days duration of fever, chills, generalized body aches. He states that he was tested for COVID- 19 on 03/2018 and was positive. 3 days back he started having shortness of breath which progressively got worse. Also reports associated cough productive of scanty whitish sputum. He denies any chest pain, palpitation, nausea, vomiting, abdominal pain, diarrhea. Patient was found to be saturating 85% by EMS and currently is requiring 4 L intranasal oxygen to saturate 92 to 94%. D4 hospital stay Patient was seen and examined at bedside. He is sitting on a recliner on HFNC 60L, 75% FIO2. He has dyspnea on exertion but he is otherwise stable. D5 Hospital stay Patient was seen and examined at bedside. No new complains, no significant improvement or worsening of his breathing status. Currently at 60L flow rate 86% FIO2. With dyspnea on exertion, none at rest. Minimal cough. Afebrile with good appetite. I was able to speak to his Deysi and their daughter over the phone. Reason For Visit: ACUTE HYPOXIC RESPIRATORY FAILURE,PNEUMONIA Physical Exam Vital Signs: Temp Pulse Resp BP Pulse Ox 98.1 F 79 24 H 140/78 H 95 04/07/20 08:05 04/07/20 08:05 04/07/20 12:21 04/07/20 08:05 04/07/20 08:18 Intake & Output 04/06/20 04/07/20 04/08/20 06:59 06:59 06:59 Intake Total 830 1810 Output Total 2550 1525 Balance -1720 285 Weight 98.1 kg 98.1 kg General appearance: PRESENT: cooperative, other - moderate distress Head exam: PRESENT: atraumatic, normocephalic Eye exam: PRESENT: EOMI, PERRLA Mouth exam: PRESENT: moist Neck exam: PRESENT: full ROM Cardiovascular exam: PRESENT: RRR, +S1, +S2 Pulses: PRESENT: +2 pedal pulses bilateral GI/Abdominal exam: PRESENT: normal bowel sounds, soft. ABSENT: rebound, tenderness Extremities exam: PRESENT: +2 edema Musculoskeletal exam: PRESENT: full ROM Neurological exam: PRESENT: alert, awake, oriented to person, oriented to place, oriented to time, oriented to situation Psychiatric exam: PRESENT: normal mood Skin exam: PRESENT: normal color Results Laboratory Results: 04/07/20 04:54 04/07/20 06:13 04/07/20 04/07/20 04/07/20 04:54 04:54 06:13 WBC 9.2 RBC 4.26 L Hgb 13.7 Hct 39.3 MCV 92 MCH 32.0 MCHC 34.7 RDW 13.5 Plt Count 263 Seg Neutrophils % Not Reportable Sodium Cancelled 136.8 L Potassium Cancelled 4.5 Chloride Cancelled 102 Carbon Dioxide Cancelled 25 Anion Gap Cancelled 10 BUN Cancelled 35 H Creatinine Cancelled 1.01 Est GFR ( Amer) Cancelled > 60 Est GFR (Non-Af Amer) Cancelled Glucose Cancelled 158 H Calcium Cancelled 9.0 Total Bilirubin Cancelled 0.9 AST Cancelled 88 H Alkaline Phosphatase Cancelled 84 Total Protein Cancelled 7.3 Albumin Cancelled 3.8 Impressions: Chest X-Ray 04/02/20 22:58 IMPRESSION: 1. Infiltrates, mostly involving right upper lobe, consistent with atypical/viral pneumonia Assessment and Plan - Diagnosis (1) Acute respiratory failure with hypoxia Is this a current diagnosis for this admission?: Yes Plan: Presents with shortness of breath Oxygen saturation was 85% on room initial evaluation Tested positive for COVID-19 on 03/30 On BIpap 85% FIO2, 60L flow Started on dexamethasone, status post ivermectin, zinc, vitamin C, vitamin D on remdesivir Closely monitor for any deterioration in his respiratory status (2) Pneumonia due to COVID-19 virus Is this a current diagnosis for this admission?: Yes Plan: Started having symptoms 5 days back and tested positive on 03/30 Currently presented with worsening of shortness of breath Ferritin, LDH, CRP and D-dimer all elevated Chest x-ray shows infiltrates involving right upper lobe Started him on therapeutic dose Lovenox Currently on dexamethasone, zinc, vitamin C, vitamin D completed Ivermectin Continue HFNC support wean as tolerated (3) Hx of CABG Is this a current diagnosis for this admission?: Yes Plan: Bypass surgery was done in the Continue management as stated above under CAD (4) Hypertension Qualifiers: Hypertension type: essential hypertension Qualified Code(s): I10 - Essential (primary) hypertension Is this a current diagnosis for this admission?: Yes Plan: Blood pressure is within acceptable limits Continue home medications (5) Pre-diabetes Is this a current diagnosis for this admission?: Yes Plan: - carb controlled diet - A1C 5.7 (6) CAD (coronary artery disease) Qualifiers: Coronary Disease-Associated Artery/Lesion type: [place] artery Is this a current diagnosis for this admission?: Yes Plan: Currently denies any chest pain Continue aspirin and atorvastatin (7) Transaminitis Is this a current diagnosis for this admission?: Yes Plan: - likely 2/2 acute illness -AST 100>90, ALT 60>82 - CTM - Plan Summary Summary: - Time Time Spent with patient: 25-34 minutes Medications reviewed and adjusted accordingly: Yes Anticipated Discharge Disposition: Home with Home Health Anticipated Discharge Timeframe: tbd
[2020-04-07] MEDS ORDERED: FUROSEMIDE INJ/PF 40 MG/4 ML SDV IV ONE ×2 (15:30→19:15)
[2020-04-07] MEDS ORDERED: FUROSEMIDE INJ/PF 40 MG/4 ML SDV ONE (18:57)
[2020-04-07] MEDS: AZITHROMYCIN 250 MG TABLET PO SCH (22:08)
[2020-04-07] MEDS: ATORVASTATIN CALCIUM 40 MG TABLET PO SCH (22:08)
[2020-04-07] MEDS ORDERED: MELATONIN 5 MG TABLET PO ONE (22:45)
[2020-04-08 04:57] LABS: HEMATOCRIT 43.2 % (37.9-51.0); HEMOGLOBIN 14.9 g/dL (13.5-17.0); MEAN CORPUSCULAR HEMOGLOBIN 32.1 pg (27.0-33.4); MEAN CORPUSCULAR HGB CONC 34.5 g/dL (32.0-36.0); MEAN CORPUSCULAR VOLUME 93 fl (80-97); RED BLOOD COUNT 4.64 10^6/uL (4.35-5.55); RED CELL DISTRIBUTION WIDTH 13.5 % (11.5-14.0); WHITE BLOOD COUNT 16.8 10^3/uL (4.0-10.5)
[2020-04-08 05:19] LABS: ALBUMIN 3.5 g/dL (3.5-5.0); ALKALINE PHOSPHATASE 104 U/L (38-126); ANION GAP 12 (5-19); ASPARTATE AMINO TRANSFERASE 151 U/L (17-59); BILIRUBIN,DIRECT 0.4 mg/dL (0.0-0.4); BILIRUBIN,TOTAL 1.1 mg/dL (0.2-1.3); BLOOD UREA NITROGEN 37 mg/dL (7-20); C-REACTIVE PROTEIN 27.9 mg/L (<10.0); CALCIUM 8.6 mg/dL (8.4-10.2); CARBON DIOXIDE 21 mmol/L (22-30); CHLORIDE 100 mmol/L (98-107); GLUCOSE 249 mg/dL (75-110); POTASSIUM 4.6 mmol/L (3.6-5.0); TOTAL PROTEIN 6.8 g/dL (6.3-8.2)
[2020-04-08 05:33] LABS: ABSOLUTE LYMPHOCYTES# (MANUAL) 0.3 10^3/uL (0.5-4.7); ABSOLUTE MONOCYTES # (MANUAL) 1.2 10^3/uL (0.1-1.4); BASOPHILS % (MANUAL) 0 % (0-2); EOSINOPHILS % (MANUAL) 1 % (0-6); LYMPHOCYTES % (MANUAL) 2 % (13-45); MONOCYTES % (MANUAL) 7 % (3-13); SEGMENTED NEUTROPHILS % (MAN) 90 % (42-78); TOTAL CELLS COUNTED 100
[2020-04-08 05:34] LABS: PLATELET CLUMPS PRESENT; PLATELET COMMENT ADEQUATE; PLATELET COUNT 357 10^3/uL (150-450); RBC MORPHOLOGY COMMENT NORMO-CYTIC/CHROMIC
[2020-04-08] MEDS: LEVOTHYROXINE SODIUM 0.05 MG TABLET PO SCH (05:41)
[2020-04-08] MEDS: CHOLECALCIFEROL (D3) 1,000 UNIT (25 MCG) TABLET PO SCH (09:58)
[2020-04-08] MEDS: DEXAMETHASONE SOD PHOS INJ 10 MG/1 ML VIAL IV SCH (09:58)
[2020-04-08] MEDS: REMDESIVIR 100 MG in NORMAL SALINE 250 ML IV SCH (10:00)
[2020-04-08] MEDS: ENOXAPARIN SODIUM INJ 100 MG/1 ML DISP.SYRIN SUBCUT SCH ×2 (10:03→22:17)
[2020-04-08] MEDS: INSULIN LISPRO 100 UNIT/ML 3 ML VIAL SUBCUT SCH ×4 (10:04→22:18)
[2020-04-08] MEDS: INSULIN GLARGINE,HUM.REC.ANLOG 1,000 UNIT/10 ML VIAL SUBCUT SCH ×2 (10:04→22:17)
[2020-04-08] MEDS: FAMOTIDINE 20 MG TABLET PO SCH ×2 (10:05→22:16)
[2020-04-08] MEDS: ASCORBIC ACID 500 MG TABLET PO SCH ×2 (10:10→17:11)
[2020-04-08] MEDS: ZINC SULFATE 220 MG CAPSULE PO SCH (10:11)
[2020-04-08] MEDS: ACETAMINOPHEN 325 MG TABLET PO PRN ×2 (10:30→22:19)
[2020-04-08] MEDS: SIMETHICONE 80 MG TAB.CHEW PO PRN ×2 (13:43→19:53)
[2020-04-08 14:29] LABS: APPEARANCE,URINE SLIGHTLY-CLOUDY; BILIRUBIN,URINE NEGATIVE (NEGATIVE); COLOR,URINE YELLOW; GLUCOSE, URINE >=500 mg/dL (NEGATIVE); KETONES,URINE NEGATIVE (NEGATIVE); LEUKOCYTE ESTERASE,URINE NEGATIVE (NEGATIVE); NITRITE,URINE NEGATIVE (NEGATIVE); PROTEIN,URINE 100 mg/dL (NEGATIVE); URINE SPECIFIC GRAVITY 1.024; UROBILINOGEN,URINE NEGATIVE mg/dL (<2.0)
--- NOTE | 2020-04-08 16:34 | PDOC PROGRESS REPORT ---
Subjective Date:: 04/08/20 Subjective:: DELL DUMONT is a 79 year old male with a history of hypertension, hyperlipide dylan, CAD status post CABG in the who now presents with 5 days duration of fever, chills, generalized body aches. He states that he was tested for COVID- 19 on 03/2018 and was positive. 3 days back he started having shortness of breath which progressively got worse. Also reports associated cough productive of scanty whitish sputum. He denies any chest pain, palpitation, nausea, vomiting, abdominal pain, diarrhea. Patient was found to be saturating 85% by EMS and currently is requiring 4 L intranasal oxygen to saturate 92 to 94%. D4 hospital stay Patient was seen and examined at bedside. He is sitting on a recliner on HFNC 60L, 75% FIO2. He has dyspnea on exertion but he is otherwise stable. D5 Hospital stay Patient was seen and examined at bedside. No new complains, no significant improvement or worsening of his breathing status. Currently at 60L flow rate 86% FIO2. With dyspnea on exertion, none at rest. Minimal cough. Afebrile with good appetite. I was able to speak to his Deysi and their daughter over the phone. D6 Hospital stay Patient was seen and examined at bedside. He was sitting comfortably in the recliner chair on HFNC saturating 99%. Flow decreased to 50L and he maintained his O2 sats. Otherwise no new complaints. Reason For Visit: ACUTE HYPOXIC RESPIRATORY FAILURE,PNEUMONIA Physical Exam Vital Signs: Temp Pulse Resp BP Pulse Ox 98.8 F 86 19 136/56 H 92 04/08/20 11:34 04/08/20 11:34 04/08/20 11:34 04/08/20 11:34 04/08/20 11:34 Intake & Output 04/07/20 04/08/20 04/09/20 06:59 06:59 06:59 Intake Total 1810 1667 260 Output Total 1525 2325 200 Balance 285 -658 60 Weight 98.1 kg 98.1 kg General appearance: PRESENT: cooperative, mild distress Head exam: PRESENT: atraumatic, normocephalic Eye exam: PRESENT: EOMI, PERRLA Mouth exam: PRESENT: moist Neck exam: PRESENT: full ROM Respiratory exam: PRESENT: clear to auscultation deborah, symmetrical, unlabored Cardiovascular exam: PRESENT: RRR, +S1, +S2 Pulses: PRESENT: +2 pedal pulses bilateral GI/Abdominal exam: PRESENT: normal bowel sounds Extremities exam: PRESENT: full ROM Musculoskeletal exam: PRESENT: full ROM Neurological exam: PRESENT: alert, awake, oriented to person, oriented to place, oriented to time, oriented to situation Psychiatric exam: PRESENT: normal mood Skin exam: PRESENT: normal color Results Laboratory Results: 04/08/20 04:47 04/08/20 04:47 04/08/20 04/08/20 04/08/20 04:47 04:47 13:45 WBC 16.8 H RBC 4.64 Hgb 14.9 Hct 43.2 MCV 93 MCH 32.1 MCHC 34.5 RDW 13.5 Plt Count 357 Seg Neutrophils % Not Reportable Sodium 132.8 L Potassium 4.6 Chloride 100 Carbon Dioxide 21 L Anion Gap 12 BUN 37 H Creatinine 1.07 Est GFR ( Amer) > 60 Glucose 249 H Calcium 8.6 Ferritin 1280.00 H Total Bilirubin 1.1 AST 151 H Alkaline Phosphatase 104 C-Reactive Protein 27.9 H Total Protein 6.8 Albumin 3.5 Urine Color YELLOW Urine Appearance SLIGHTLY-CLOUDY Urine pH 5.0 Ur Specific [place] 1.024 Urine Protein 100 H Urine Glucose (UA) >=500 H Urine Ketones NEGATIVE Urine Blood NEGATIVE Urine Nitrite NEGATIVE Ur Leukocyte Esterase NEGATIVE Urine WBC (Auto) 2 Urine RBC (Auto) 1 Impressions: Chest X-Ray 04/02/20 22:58 IMPRESSION: 1. Infiltrates, mostly involving right upper lobe, consistent with atypical/viral pneumonia Assessment and Plan - Diagnosis (1) Acute respiratory failure with hypoxia Is this a current diagnosis for this admission?: Yes Plan: Presents with shortness of breath Oxygen saturation was 85% on room initial evaluation Tested positive for COVID-19 on 03/30 On HFNC 50L flow sats 98% on dexamethasone D8, status post ivermectin, zinc, vitamin C, vitamin D on remdesivir day 3 Closely monitor for any deterioration in his respiratory status (2) Pneumonia due to COVID-19 virus Is this a current diagnosis for this admission?: Yes Plan: Started having symptoms 5 days back and tested positive on 03/30 Currently presented with worsening of shortness of breath Ferritin, LDH, CRP and D-dimer all elevated Chest x-ray shows infiltrates involving right upper lobe Started him on therapeutic dose Lovenox Currently on dexamethasone, zinc, vitamin C, vitamin D completed Ivermectin On remdesivir Continue HFNC support wean as tolerated (3) Hx of CABG Is this a current diagnosis for this admission?: Yes Plan: Bypass surgery was done in the s Continue management as stated above under CAD (4) Hypertension Qualifiers: Hypertension type: essential hypertension Qualified Code(s): I10 - Essential (primary) hypertension Is this a current diagnosis for this admission?: Yes Plan: Blood pressure is within acceptable limits Continue home medications (5) Pre-diabetes Is this a current diagnosis for this admission?: Yes Plan: - carb controlled diet - A1C 5.7 (6) CAD (coronary artery disease) Qualifiers: Coronary Disease-Associated Artery/Lesion type: [place] artery Is this a current diagnosis for this admission?: Yes Plan: Currently denies any chest pain Continue aspirin and atorvastatin (7) Transaminitis Is this a current diagnosis for this admission?: Yes Plan: - likely 2/2 acute illness -AST 100>90, ALT 60>82 - CTM - Plan Summary Summary: - Time Time Spent with patient: 15-24 minutes Medications reviewed and adjusted accordingly: Yes Anticipated Discharge Disposition: Senior Living Facility Anticipated Discharge Timeframe: tbd
[2020-04-08] MEDS ORDERED: MAGNESIUM HYDROXIDE SUSP 30 ML UDCUP ONE (17:10)
[2020-04-08] MEDS ORDERED: MAG HYDROX/AL HYDROX/SIMETH SUSP 30 ML UDCUP PO ONE (18:00)
[2020-04-08] MEDS ORDERED: MAGNESIUM HYDROXIDE SUSP 30 ML UDCUP PO ONE (18:30)
[2020-04-08] MEDS: AZITHROMYCIN 250 MG TABLET PO SCH (22:16)
[2020-04-08] MEDS: MELATONIN 5 MG TABLET PO SCH (22:17)
[2020-04-09] MEDS: LEVOTHYROXINE SODIUM 0.05 MG TABLET PO SCH (05:56)
[2020-04-09] MEDS: ACETAMINOPHEN 325 MG TABLET PO PRN ×3 (05:56→23:18)
[2020-04-09] MEDS: SIMETHICONE 80 MG TAB.CHEW PO PRN ×2 (05:59→13:32)
[2020-04-09 06:28] LABS: HEMATOCRIT 42.5 % (37.9-51.0); HEMOGLOBIN 14.7 g/dL (13.5-17.0); MEAN CORPUSCULAR HEMOGLOBIN 31.6 pg (27.0-33.4); MEAN CORPUSCULAR HGB CONC 34.5 g/dL (32.0-36.0); MEAN CORPUSCULAR VOLUME 92 fl (80-97); RED BLOOD COUNT 4.63 10^6/uL (4.35-5.55); RED CELL DISTRIBUTION WIDTH 13.5 % (11.5-14.0); WHITE BLOOD COUNT 15.5 10^3/uL (4.0-10.5)
[2020-04-09 06:47] LABS: ALBUMIN 3.4 g/dL (3.5-5.0); ALKALINE PHOSPHATASE 106 U/L (38-126); ANION GAP 9 (5-19); ASPARTATE AMINO TRANSFERASE 161 U/L (17-59); BILIRUBIN,DIRECT 0.3 mg/dL (0.0-0.4); BILIRUBIN,TOTAL 1.1 mg/dL (0.2-1.3); BLOOD UREA NITROGEN 34 mg/dL (7-20); CALCIUM 8.7 mg/dL (8.4-10.2); CARBON DIOXIDE 25 mmol/L (22-30); CHLORIDE 101 mmol/L (98-107); GLUCOSE 161 mg/dL (75-110); POTASSIUM 4.8 mmol/L (3.6-5.0); TOTAL PROTEIN 6.5 g/dL (6.3-8.2)
[2020-04-09 07:01] LABS: ABSOLUTE LYMPHOCYTES# (MANUAL) 1.6 10^3/uL (0.5-4.7); ABSOLUTE MONOCYTES # (MANUAL) 0.5 10^3/uL (0.1-1.4); BASOPHILS % (MANUAL) 0 % (0-2); EOSINOPHILS % (MANUAL) 0 % (0-6); LYMPHOCYTES % (MANUAL) 10 % (13-45); MONOCYTES % (MANUAL) 3 % (3-13); SEGMENTED NEUTROPHILS % (MAN) 87 % (42-78); TOTAL CELLS COUNTED 100
[2020-04-09 07:02] LABS: ANISOCYTOSIS SLIGHT; PLATELET CLUMPS PRESENT; PLATELET COMMENT ADEQUATE; POIKILOCYTOSIS SLIGHT
[2020-04-09 07:03] LABS: PLATELET COUNT 282 10^3/uL (150-450)
[2020-04-09 08:37] LABS: HEPATITS B SURFACE ANTIGEN Negative (Negative)
[2020-04-09] MEDS: INSULIN LISPRO 100 UNIT/ML 3 ML VIAL SUBCUT SCH ×4 (08:58→23:02)
[2020-04-09 09:35] LABS: HEPATITIS C VIRUS ANTIBODY <0.1 s/co ratio (0.0-0.9)
[2020-04-09] MEDS: INSULIN GLARGINE,HUM.REC.ANLOG 1,000 UNIT/10 ML VIAL SUBCUT SCH ×2 (09:58→23:01)
[2020-04-09] MEDS: DEXAMETHASONE SOD PHOS INJ 10 MG/1 ML VIAL IV SCH (09:58)
[2020-04-09] MEDS: CHOLECALCIFEROL (D3) 1,000 UNIT (25 MCG) TABLET PO SCH (09:59)
[2020-04-09] MEDS: ASCORBIC ACID 500 MG TABLET PO SCH ×2 (09:59→17:39)
[2020-04-09] MEDS: ENOXAPARIN SODIUM INJ 100 MG/1 ML DISP.SYRIN SUBCUT SCH ×2 (09:59→23:00)
[2020-04-09] MEDS: REMDESIVIR 100 MG in NORMAL SALINE 250 ML IV SCH (09:59)
[2020-04-09] MEDS: FAMOTIDINE 20 MG TABLET PO SCH ×2 (09:59→23:00)
[2020-04-09] MEDS: ZINC SULFATE 220 MG CAPSULE PO SCH (10:15)
--- NOTE | 2020-04-09 16:20 | PDOC PROGRESS REPORT ---
Subjective Date:: 04/09/20 Subjective:: DELL DUMONT is a 79 year old male with a history of hypertension, hyperlipide dylan, CAD status post CABG in the 90s who now presents with 5 days duration of fever, chills, generalized body aches. He states that he was tested for COVID- 19 on 03/2018 and was positive. 3 days back he started having shortness of breath which progressively got worse. Also reports associated cough productive of scanty whitish sputum. He denies any chest pain, palpitation, nausea, vomiting, abdominal pain, diarrhea. Patient was found to be saturating 85% by EMS and currently is requiring 4 L intranasal oxygen to saturate 92 to 94%. D4 hospital stay Patient was seen and examined at bedside. He is sitting on a recliner on HFNC 60L, 75% FIO2. He has dyspnea on exertion but he is otherwise stable. D5 Hospital stay Patient was seen and examined at bedside. No new complains, no significant improvement or worsening of his breathing status. Currently at 60L flow rate 86% FIO2. With dyspnea on exertion, none at rest. Minimal cough. Afebrile with good appetite. I was able to speak to his Deysi and their daughter over the phone. D6 Hospital stay Patient was seen and examined at bedside. He was sitting comfortably in the recliner chair on HFNC saturating 99%. Flow decreased to 50L and he maintained his O2 sats. Otherwise no new complaints. D7 hospital stay. Patient was seen and examined at bedside. No new complains, on 50L flow of HFNC. His O2 requirements decreasing. Otherwiae he is stable. He is on Day 4 of remdesivir. Reason For Visit: ACUTE HYPOXIC RESPIRATORY FAILURE,PNEUMONIA Physical Exam Vital Signs: Temp Pulse Resp BP Pulse Ox 99.0 F 83 16 125/57 L 93 04/09/20 11:32 04/09/20 14:00 04/09/20 11:34 04/09/20 11:32 04/09/20 11:34 Intake & Output 04/08/20 04/09/20 04/10/20 06:59 06:59 06:59 Intake Total 1667 770 250 Output Total 2325 1000 Balance -658 -230 250 Weight 98.1 kg 96.5 kg 96.5 kg General appearance: PRESENT: cooperative, mild distress Head exam: PRESENT: atraumatic, normocephalic Eye exam: PRESENT: EOMI, PERRLA Mouth exam: PRESENT: moist Neck exam: PRESENT: full ROM Respiratory exam: PRESENT: clear to auscultation deborah, symmetrical, unlabored Cardiovascular exam: PRESENT: RRR, +S1, +S2 GI/Abdominal exam: PRESENT: normal bowel sounds, soft. ABSENT: rebound, tenderness Extremities exam: PRESENT: full ROM Musculoskeletal exam: PRESENT: full ROM Neurological exam: PRESENT: alert, awake, oriented to person, oriented to place, oriented to time, oriented to situation Psychiatric exam: PRESENT: normal mood Skin exam: PRESENT: normal color Results Laboratory Results: 04/09/20 06:10 04/09/20 06:10 04/09/20 04/09/20 06:10 06:10 WBC 15.5 H RBC 4.63 Hgb 14.7 Hct 42.5 MCV 92 MCH 31.6 MCHC 34.5 RDW 13.5 Plt Count 282 Seg Neutrophils % Not Reportable Sodium 134.9 L Potassium 4.8 Chloride 101 Carbon Dioxide 25 Anion Gap 9 BUN 34 H Creatinine 0.92 Est GFR ( Amer) > 60 Glucose 161 H Calcium 8.7 Total Bilirubin 1.1 AST 161 H Alkaline Phosphatase 106 Total Protein 6.5 Albumin 3.4 L Impressions: Chest X-Ray 04/02/20 22:58 IMPRESSION: 1. Infiltrates, mostly involving right upper lobe, consistent with atypical/viral pneumonia Assessment and Plan - Diagnosis (1) Acute respiratory failure with hypoxia Is this a current diagnosis for this admission?: Yes Plan: Presents with shortness of breath Oxygen saturation was 85% on room initial evaluation Tested positive for COVID-19 on 03/30 On HFNC 50L flow sats 98% on dexamethasone D8, status post ivermectin, zinc, vitamin C, vitamin D on remdesivir day 4 O2 needs decreasing (2) Pneumonia due to COVID-19 virus Is this a current diagnosis for this admission?: Yes Plan: Started having symptoms 5 days back and tested positive on 03/30 Currently presented with worsening of shortness of breath Ferritin, LDH, CRP and D-dimer all elevated Chest x-ray shows infiltrates involving right upper lobe Started him on therapeutic dose Lovenox Currently on dexamethasone, zinc, vitamin C, vitamin D completed Ivermectin On remdesivir Continue HFNC support wean as tolerated (3) Hx of CABG Is this a current diagnosis for this admission?: Yes Plan: Bypass surgery was done in the 90s Continue management as stated above under CAD (4) Hypertension Qualifiers: Hypertension type: essential hypertension Qualified Code(s): I10 - Essential (primary) hypertension Is this a current diagnosis for this admission?: Yes Plan: Blood pressure is within acceptable limits Continue home medications (5) Pre-diabetes Is this a current diagnosis for this admission?: Yes Plan: - carb controlled diet - A1C 5.7 (6) CAD (coronary artery disease) Qualifiers: Coronary Disease-Associated Artery/Lesion type: [place] artery Is this a current diagnosis for this admission?: Yes Plan: Currently denies any chest pain Continue aspirin and atorvastatin (7) Transaminitis Is this a current diagnosis for this admission?: Yes Plan: - likely 2/2 acute illness -AST 100>90, ALT 60>82 - CTM - Plan Summary Summary: - Time Time Spent with patient: 25-34 minutes Medications reviewed and adjusted accordingly: Yes Anticipated Discharge Disposition: Home with Home Health Anticipated Discharge Timeframe: tbd
[2020-04-09] MEDS: METOCLOPRAMIDE HCL 10 MG TABLET PO SCH ×2 (17:39→23:06)
[2020-04-09] MEDS: AZITHROMYCIN 250 MG TABLET PO SCH (23:00)
[2020-04-09] MEDS: MELATONIN 5 MG TABLET PO SCH (23:00)
[2020-04-10] MEDS: LEVOTHYROXINE SODIUM 0.05 MG TABLET PO SCH (05:52)
[2020-04-10 06:06] LABS: HEMATOCRIT 42.9 % (37.9-51.0); HEMOGLOBIN 14.4 g/dL (13.5-17.0); MEAN CORPUSCULAR HEMOGLOBIN 31.5 pg (27.0-33.4); MEAN CORPUSCULAR HGB CONC 33.6 g/dL (32.0-36.0); MEAN CORPUSCULAR VOLUME 94 fl (80-97); RED BLOOD COUNT 4.58 10^6/uL (4.35-5.55); RED CELL DISTRIBUTION WIDTH 13.7 % (11.5-14.0); WHITE BLOOD COUNT 13.3 10^3/uL (4.0-10.5)
[2020-04-10 06:23] LABS: ABSOLUTE LYMPHOCYTES# (MANUAL) 0.8 10^3/uL (0.5-4.7); ABSOLUTE MONOCYTES # (MANUAL) 0.3 10^3/uL (0.1-1.4); BASOPHILS % (MANUAL) 0 % (0-2); EOSINOPHILS % (MANUAL) 1 % (0-6); LYMPHOCYTES % (MANUAL) 6 % (13-45); MONOCYTES % (MANUAL) 2 % (3-13); NUCLEATED RED BLOOD CELLS 1 /100 WBC (0); SEGMENTED NEUTROPHILS % (MAN) 91 % (42-78); TOTAL CELLS COUNTED 100
[2020-04-10 06:24] LABS: PLATELET CLUMPS PRESENT; PLATELET COMMENT ADEQUATE; PLATELET COUNT 253 10^3/uL (150-450); RBC MORPHOLOGY COMMENT NORMO-CYTIC/CHROMIC
[2020-04-10 07:33] LABS: ALKALINE PHOSPHATASE 96 U/L (38-126); ANION GAP 6 (5-19); ASPARTATE AMINO TRANSFERASE 82 U/L (17-59); BILIRUBIN,DIRECT 0.2 mg/dL (0.0-0.4); BILIRUBIN,TOTAL 0.8 mg/dL (0.2-1.3); BLOOD UREA NITROGEN 37 mg/dL (7-20); CALCIUM 8.5 mg/dL (8.4-10.2); CARBON DIOXIDE 28 mmol/L (22-30); CHLORIDE 101 mmol/L (98-107); GLUCOSE 169 mg/dL (75-110); POTASSIUM 5.1 mmol/L (3.6-5.0); TOTAL PROTEIN 6.1 g/dL (6.3-8.2)
[2020-04-10] MEDS ORDERED: IPRATROPIUM/ALBUTEROL 0.5-2.5 MG/3 ML AMPUL NEB ONE ×2 (08:24→09:30)
[2020-04-10] MEDS ORDERED: FUROSEMIDE INJ/PF 40 MG/4 ML SDV ONE (08:24)
[2020-04-10] MEDS: INSULIN LISPRO 100 UNIT/ML 3 ML VIAL SUBCUT SCH ×2 (08:39→11:59)
[2020-04-10] MEDS: METOCLOPRAMIDE HCL 10 MG TABLET PO SCH ×2 (08:56→11:16)
--- NOTE | 2020-04-10 09:07 | RADIOLOGY REPORT (SQ) ---
EXAM DESCRIPTION: CHEST SINGLE VIEW IMAGES COMPLETED DATE/TIME: 04/10/2020 8:55 am REASON FOR STUDY: SOB COMPARISON: 04/02/2020 EXAM PARAMETERS: NUMBER OF VIEWS: One view. TECHNIQUE: Single frontal radiographic view of the chest acquired. RADIATION DOSE: NA LIMITATIONS: None. FINDINGS: LUNGS AND PLEURA: Perihilar basilar prominent interstitial opacities. No dense consolidat ion. Improved right upper lobe aeration from prior exam. No pneumothorax. No significant effusion. MEDIASTINUM AND HILAR STRUCTURES: No masses. Contour normal. HEART AND VASCULAR STRUCTURES: Heart normal in size. Normal vasculature. BONES: No acute findings. Prior sternotomy. HARDWARE: CABG hardware. OTHER: No other significant finding. IMPRESSION: 1. Basilar predominant interstitial opacities, likely interstitial edema. Atypical inf ection not excluded. Improve right upper lobe aeration from prior exam. 2. Prior CABG. TECHNICAL DOCUMENTATION: JOB ID: [id number] 2010 [employer]- All Rights Reserved Reading location - IP/workstation name: [email or web address]
[2020-04-10] MEDS ORDERED: FUROSEMIDE INJ/PF 40 MG/4 ML SDV IV ONE (09:30)
[2020-04-10 09:34] LABS: HEMOGLOBIN 15.3 g/dL (13.5-17.0); MEAN CORPUSCULAR HEMOGLOBIN 31.9 pg (27.0-33.4); MEAN CORPUSCULAR HGB CONC 33.9 g/dL (32.0-36.0); MEAN CORPUSCULAR VOLUME 94 fl (80-97); PLATELET COUNT 257 10^3/uL (150-450); RED BLOOD COUNT 4.78 10^6/uL (4.35-5.55); RED CELL DISTRIBUTION WIDTH 13.6 % (11.5-14.0); WHITE BLOOD COUNT 14.9 10^3/uL (4.0-10.5)
[2020-04-10] MEDS ORDERED: MORPHINE SULFATE 10 MG/ML INJ ONE (09:44)
[2020-04-10 09:48] LABS: ABSOLUTE LYMPHOCYTES# (MANUAL) 0.6 10^3/uL (0.5-4.7); ABSOLUTE MONOCYTES # (MANUAL) 0.3 10^3/uL (0.1-1.4); BASOPHILS % (MANUAL) 0 % (0-2); EOSINOPHILS % (MANUAL) 3 % (0-6); LYMPHOCYTES % (MANUAL) 4 % (13-45); MONOCYTES % (MANUAL) 2 % (3-13); PLATELET COMMENT ADEQUATE; RBC MORPHOLOGY COMMENT NORMO-CYTIC/CHROMIC; SEGMENTED NEUTROPHILS % (MAN) 91 % (42-78); TOTAL CELLS COUNTED 100
[2020-04-10 09:53] LABS: ARTERIAL BLOOD BASE EXCESS -2.1 mmol/L; ARTERIAL BLOOD H2CO3 0.84 mmol/L (1.05-1.35); ARTERIAL BLOOD HCO3 19.9 mmol/L (20-24); ARTERIAL BLOOD PCO2 27.9 mmHg (35-45); ARTERIAL BLOOD PH 7.47 (7.35-7.45); ARTERIAL BLOOD TOTAL CO2 20.8 mmol/L (23-27)
[2020-04-10 09:57] LABS: ARTERIAL BLOOD PO2 40.4 mmHg (80-100)
[2020-04-10 09:59] LABS: ALBUMIN 3.5 g/dL (3.5-5.0); ALKALINE PHOSPHATASE 105 U/L (38-126); ANION GAP 10 (5-19); ASPARTATE AMINO TRANSFERASE 94 U/L (17-59); BILIRUBIN,DIRECT 0.3 mg/dL (0.0-0.4); BLOOD UREA NITROGEN 38 mg/dL (7-20); CALCIUM 8.6 mg/dL (8.4-10.2); CARBON DIOXIDE 27 mmol/L (22-30); CHLORIDE 98 mmol/L (98-107); GLUCOSE 170 mg/dL (75-110); POTASSIUM 5.1 mmol/L (3.6-5.0); TOTAL PROTEIN 6.9 g/dL (6.3-8.2)
[2020-04-10] MEDS ORDERED: HEPARIN SODIUM,PORCINE/D5W 25,000 UNIT/250 ML RTUINJ IV PRN (10:28)
[2020-04-10] MEDS ORDERED: HEPARIN SOD (PORCINE) 1,000 UNIT/ML 10 ML VIAL IV ONE (10:28)
[2020-04-10] MEDS ORDERED: ASPIRIN 325 MG TABLET PO ONE (10:30)
[2020-04-10 10:56] LABS: INTERNATIONAL RATION (INR) 1.15; PARTIAL THROMBOPLASTIN TIME 33.7 SEC (23.5-35.8); PROTHROMBIN TIME 14.9 SEC (11.4-15.4)
[2020-04-10] MEDS ORDERED: MORPHINE SULFATE 10 MG/ML INJ IV ONE (11:00)
[2020-04-10] MEDS: FAMOTIDINE 20 MG TABLET PO SCH (11:16)
[2020-04-10] MEDS: REMDESIVIR 100 MG in NORMAL SALINE 250 ML IV SCH (11:16)
[2020-04-10] MEDS: CHOLECALCIFEROL (D3) 1,000 UNIT (25 MCG) TABLET PO SCH (11:16)
[2020-04-10] MEDS: ASCORBIC ACID 500 MG TABLET PO SCH (11:17)
[2020-04-10] MEDS: INSULIN GLARGINE,HUM.REC.ANLOG 1,000 UNIT/10 ML VIAL SUBCUT SCH (11:17)
[2020-04-10] MEDS: DEXAMETHASONE SOD PHOS INJ 10 MG/1 ML VIAL IV SCH (11:17)
[2020-04-10] MEDS: ZINC SULFATE 220 MG CAPSULE PO SCH (11:18)
[2020-04-10] MEDS ORDERED: ATORVASTATIN CALCIUM 80 MG TABLET PO ONE (11:30)
--- NOTE | 2020-04-10 11:37 | Progress Note ---
Provider Note Provider Note: I received a call from Dr. Vidal regarding this patient. In summary, he is a 79y/o male with a cardiac history as described in the HPI who was admitted on MAR 22 with COVID pneumonia. The patient initially showed progressive hypoxemia however began to improve. Unfortunately he decompensated earlier today with increased shortness of breath and increased work of breathing. A CXR demonstrated early pulmonary edema, EKG consistent with new ST elevations in the inferior leads and reciprocal changes in the lateral leads and his initial troponin was 10. Dr. Vidal contacted Dr. Atkins, multiple tube winding machine operator at [facility] who recommended thrombolytics. I spoke with the transfer line at [facility] and they are in the process of arranging transfer. In the meantime he will be managed medically.
--- NOTE | 2020-04-10 11:45 | Progress Note ---
Provider Note Provider Note: Just received a call from the nurse at the transfer line at [facility] informing me that Dr. Atkins will only accept the patient if he fails thrombolytics. At this point I still believe that patient should be treated for STEMI irrespective of his COVID status especially when he is in acute heart failure. I discussed the c ase with Dr. Vidal and we will try to transfer him to [facility].
[2020-04-10] MEDS ORDERED: ALTEPLASE INJ 100 MG VIAL IV ONE (12:00)
--- NOTE | 2020-04-10 12:21 | PDOC CONSULTATION ---
Consultation Consult Date: 04/10/20 Attending physician:: SURENDRA ALBRECHT Provider Consulted: UMA YE Consult reason:: STEMI History of Present Illness Admission Date/PCP: 04/03/20 02:[facility] History of Present Illness: DELL DUMONT is a 79 year old male with history of coronary artery disease status post CABG in the , hyperlipidemia, hypertension who is consulted to our service for evaluation of STEMI. The patient was seen in our emergency room on 04/02/2020 and diagnosed with Covid 19. His initial course was complicated by worsening of his respiratory status but eventually his oxygen requirement decreased and he appeared to be improving. Unfortunately, and according to the nursing staff, the patient became acutely short of breath with increase in his respiratory rate, increased work of breathing and increased oxygen requirement. He is currently on BiPAP. He denies chest pain however complains of significant shortness of breath. Physical exam on 04/10/2020: GENERAL: Alert, oriented x3. On BiPAP support, mildly tachypneic. HEENT: Normocephalic, atraumatic. Pupils equal. Sclerae anicteric. Oropharynx moist. NECK: Difficult to evaluate for JVD given his body habitus. LUNGS: Difficult to auscultate due to background noise from BiPAP machine however there are diffuse rhonchi in all [place]. CARDIOVASCULAR: Tachycardic, regular rate and rhythm, normal S1 and S2 without murmurs, rubs, or gallops. PMI not displaced. ABDOMEN: No masses or tenderness to palpation. No bruit. No splenomegaly or hepatomegaly. No abdominal aorta bruit noted. EXTREMITIES: 1+ pitting edema bilaterally, no cyanosis, no clubbing. SKIN: No lesions or rashes. MUSCULOSKELETAL: No chest tenderness to palpation. NEUROLOGIC: Nonfocal. No gross sensory or motor deficits bilateral upper or lower extremities. Past Medical History Cardiac Medical History: Reports: Coronary Artery Disease, Hyperlipidema, Hypertension Psychiatric Medical History: Denies: Depression Social History Smoking Status: Former Smoker Cigarettes Packs Per Day: 1 Electronic Cigarette use?: No Number of Years Smokin Frequency of Alcohol Use: None Hx Recreational Drug Use: Yes Drugs: None Hx Prescription Drug Abuse: No - Advance Directive Resuscitation Status: Full Code Family History Family History: Reviewed & Not Pertinent Parental Family History Reviewed: Yes Children Family History Reviewed: Yes Sibling(s) Family History Reviewed.: Yes Medication/Allergy Home Medications: Atorvastatin Calcium [Lipitor 40 mg Tablet] 40 mg PO QHS 04/03/20 Krill/Om3/Dha/Epa/Om6/Lip/Astx [Krill Oil 1,000 Mg Softgel] 1 each PO DAILY 04/03/20 Levothyroxine Sodium [Synthroid 50 Mcg Tablet] 50 mcg PO DAILY 04/03/20 Lisinopril [Zestril] 40 mg PO DAILY 04/03/20 Multivit-Min/FA/Lycopen/Lutein [Centrum Silver Men Tablet] 1 each PO DAILY 04/03/20 Nitroglycerin [Nitrostat 0.4 mg (1/150 Gr) Tabs 25/Bottle] 1 tab SL Q5MP PRN 04/03/20 Ubidecarenone/Vit E Acet [Co Q-10 100 mg Softgel] 1 each PO DAILY 04/03/20 Vit C/E/Zn/Coppr/Lutein/Zeaxan [Preservision Areds 2 Softgel] 1 each PO BID 04/23 Allergies/Adverse Reactions: No Known Allergies Allergy (Unverified 04/04/20 02:48) Physical Exam Vital Signs: Temp Pulse Resp BP Pulse Ox 98.4 F 110 H 34 H 137/73 H 96 04/10/20 11:52 04/10/20 11:52 04/10/20 11:52 04/10/20 11:52 04/10/20 11:52 Intake & Output 04/09/20 04/10/20 04/11/20 06:59 06:59 06:59 Intake Total 770 1130 Output Total 1000 1000 Balance -230 130 Weight 96.5 kg 96.5 kg Results Laboratory Results: 04/10/20 08:53 04/10/20 08:53 04/10/20 04/10/20 04/10/20 05:53 05:53 06:53 WBC 13.3 H RBC 4.58 Hgb 14.4 Hct 42.9 MCV 94 MCH 31.5 MCHC 33.6 RDW 13.7 Plt Count 253 Seg Neutrophils % Not Reportable Carbonic Acid HCO3/H2CO3 Ratio ABG pH ABG pCO2 ABG pO2 ABG HCO3 ABG O2 Saturation ABG Base Excess FiO2 Sodium Cancelled 135.4 L Potassium Cancelled 5.1 H Chloride Cancelled 101 Carbon Dioxide Cancelled 28 Anion Gap Cancelled 6 BUN Cancelled 37 H Creatinine Cancelled 1.02 Est GFR ( Amer) Cancelled > 60 Est GFR (Non-Af Amer) Cancelled Glucose Cancelled 169 H Calcium Cancelled 8.5 Total Bilirubin Cancelled 0.8 AST Cancelled 82 H Alkaline Phosphatase Cancelled 96 Total Protein Cancelled 6.1 L Albumin Cancelled 3.0 L 04/10/20 04/10/20 04/10/20 08:20 08:53 08:53 WBC 14.9 H RBC 4.78 Hgb 15.3 Hct 45.0 MCV 94 MCH 31.9 MCHC 33.9 RDW 13.6 Plt Count 257 Seg Neutrophils % Not Reportable Carbonic Acid Cancelled HCO3/H2CO3 Ratio Cancelled ABG pH Cancelled ABG pCO2 Cancelled ABG pO2 Cancelled ABG HCO3 Cancelled ABG O2 Saturation Cancelled ABG Base Excess Cancelled FiO2 Cancelled Sodium 135.4 L Potassium 5.1 H Chloride 98 Carbon Dioxide 27 Anion Gap 10 BUN 38 H Creatinine 0.99 Est GFR ( Amer) > 60 Est GFR (Non-Af Amer) Glucose 170 H Calcium 8.6 Total Bilirubin 1.0 AST 94 H Alkaline Phosphatase 105 Total Protein 6.9 Albumin 3.5 04/10/20 09:25 WBC RBC Hgb Hct MCV MCH MCHC RDW Plt Count Seg Neutrophils % Carbonic Acid 0.84 L HCO3/H2CO3 Ratio 23:1 ABG pH 7.47 H ABG pCO2 27.9 L ABG pO2 40.4 L* ABG HCO3 19.9 L ABG O2 Saturation 80.0 L ABG Base Excess -2.1 FiO2 93% Sodium Potassium Chloride Carbon Dioxide Anion Gap BUN Creatinine Est GFR ( Amer) Est GFR (Non-Af Amer) Glucose Calcium Total Bilirubin AST Alkaline Phosphatase Total Protein Albumin 04/10/20 04/10/20 08:53 08:53 Troponin I 10.800 NT-Pro-B Natriuret Pep 2290 H Impressions: Chest X-Ray 04/10/20 00:00 IMPRESSION: 1. Basilar predominant interstitial opacities, likely interstitial edema. Atypical infection not excluded. Improve right upper lobe aeration from prior exam. 2. Prior CABG. 04/10/20 08:53 04/10/20 08:53 MCV 94 fl (80-97) 04/10/20 08:53 MCH 31.9 pg (27.0-33.4) 04/10/20 08:53 MCHC 33.9 g/dL (32.0-36.0) 04/10/20 08:53 RDW 13.6 % (11.5-14.0) 04/10/20 08:53 Seg Neutrophils % Not Reportable 04/10/20 08:53 Carbonic Acid 0.84 mmol/L (1.05-1.35) L 04/10/20 09:25 HCO3/H2CO3 Ratio 23:1 04/10/20 09:25 ABG pH 7.47 (7.35-7.45) H 04/10/20 09:25 ABG pCO2 27.9 mmHg (35-45) L 04/10/20 09:25 ABG pO2 40.4 mmHg (80-100) L* 04/10/20 09:25 ABG HCO3 19.9 mmol/L (20-24) L 04/10/20 09:25 ABG O2 Saturation 80.0 % (94-98) L 04/10/20 09:25 ABG Base Excess -2.1 mmol/L 04/10/20 09:25 FiO2 93% 04/10/20 09:25 Chloride 98 mmol/L (98-107) 04/10/20 08:53 Carbon Dioxide 27 mmol/L (22-30) 04/10/20 08:53 Anion Gap 10 (5-19) 04/10/20 08:53 Est GFR ( Amer) > 60 (>60) 04/10/20 08:53 Est GFR (Non-Af Amer) Cancelled 04/10/20 05:53 Glucose 170 mg/dL (75-110) H 04/10/20 08:53 Calcium 8.6 mg/dL (8.4-10.2) 04/10/20 08:53 Ferritin 1280.00 ng/mL (17.9-464.0) H 04/08/20 04:47 Total Bilirubin 1.0 mg/dL (0.2-1.3) 04/10/20 08:53 AST 94 U/L (17-59) H 04/10/20 08:53 Alkaline Phosphatase 105 U/L (38-126) 04/10/20 08:53 C-Reactive Protein 27.9 mg/L (<10.0) H 04/08/20 04:47 Total Protein 6.9 g/dL (6.3-8.2) 04/10/20 08:53 Albumin 3.5 g/dL (3.5-5.0) 04/10/20 08:53 Urine Color YELLOW 04/08/20 13:45 Urine Appearance SLIGHTLY-CLOUDY 04/08/20 13:45 Urine pH 5.0 (5.0-9.0) 04/08/20 13:45 Ur Specific [place] 1.024 04/08/20 13:45 Urine Protein 100 mg/dL (NEGATIVE) H 04/08/20 13:45 Urine Glucose (UA) >=500 mg/dL (NEGATIVE) H 04/08/20 13:45 Urine Ketones NEGATIVE mg/dL (NEGATIVE) 04/08/20 13:45 Urine Blood NEGATIVE (NEGATIVE) 04/08/20 13:45 Urine Nitrite NEGATIVE (NEGATIVE) 04/08/20 13:45 Ur Leukocyte Esterase NEGATIVE (NEGATIVE) 04/08/20 13:45 Urine WBC (Auto) 2 /HPF 04/08/20 13:45 Urine RBC (Auto) 1 /HPF 04/08/20 13:45 04/10/20 04/10/20 08:53 08:53 Troponin I 10.800 NT-Pro-B Natriuret Pep 2290 H Current Medication List Generic Name Dose Route Start Last Admin Trade Name Amariq PRN Reason Stop Dose Admin Acetaminophen 650 mg 04/03/20 02:36 04/09/20 23:18 Acetaminophen 325 Mg Tablet PO 05/03/20 02:35 650 mg Q4HP PRN Administration FEVER >101 Ascorbic Acid 500 mg 04/03/20 10:00 04/10/20 11:17 Ascorbic Acid 500 Mg Tablet PO 05/03/20 09:59 500 mg BID LING Administration Azithromycin 500 mg 04/03/20 22:00 04/09/20 23:00 Azithromycin 250 Mg Tablet PO 04/10/20 21:59 500 mg QHS LING Administration Cholecalciferol 2,000 unit 04/03/20 10:00 04/10/20 11:16 Cholecalciferol (D3) 1,000 Unit (25 Mcg) Tablet PO 05/03/20 09:59 2,000 unit DAILY LING Administration Clopidogrel Bisulfate 75 mg 04/10/20 13:00 Clopidogrel Bisulfate 75 Mg Tablet PO 04/10/20 13:01 NOW ONE Dexamethasone Sodium Phosphate 6 mg 04/03/20 10:00 04/10/20 11:17 Dexamethasone Sod Phos Inj 10 Mg/1 Ml Vial IV 05/03/20 09:59 6 mg DAILY LING Administration Dextrose 12.5 gm 04/03/20 08:24 Dextrose 50%-Water 25 Gm/50 Ml Disp.Syrin IV 05/03/20 08:23 PRN PRN FOR BG 50-69 IN ALERT PATIENT Protocol Dextrose 25 gm 04/03/20 08:24 Dextrose 50%-Water 25 Gm/50 Ml Disp.Syrin IV 05/03/20 08:23 PRN PRN PER PROTOCOL Protocol Famotidine 20 mg 04/03/20 10:00 04/10/20 11:16 Famotidine 20 Mg Tablet PO 05/03/20 09:59 20 mg Q12 LING Administration Glucagon 1 mg 04/03/20 08:24 Glucagon,Human Recomb 1 Mg Inj IM 05/03/20 08:23 PRN PRN Evaluate for BG < 70 Protocol Glucose 15 gm 04/03/20 08:24 Dextrose 40% Gel 15 Gm Tube PO 05/03/20 08:23 PRN PRN FOR BG 50-69 IN ALERT PATIENT Protocol Glucose 30 gm 04/03/20 08:24 Dextrose 40% Gel 15 Gm Tube PO 05/03/20 08:23 PRN PRN FOR BG < 50 IN ALERT PATIENT Protocol Remdesivir 100 mg/ Sodium 250 mls @ 250 mls/hr 04/08/20 10:00 04/10/20 11:16 Chloride IV 04/11/20 10:59 100 mg/hr DAILY LING 250 mls/hr Administration Heparin Sodium/Dextrose 25,000 unit in 250 mls @ 0 mls/hr 04/10/20 10:28 Heparin Rtu 25,000 Unit/250 Ml D5w Premix IV 05/10/20 10:27 CONTINUOUS PRN THIS MED IS NOT "PRN" Protocol Titrate Insulin Glargine 10 unit 04/08/20 10:00 04/10/20 11:17 Insulin Glargine,Hum.Rec.Anlog 1,000 Unit/10 Ml Vial SUBCUT 05/08/20 09:59 10 unit Q12 LING Administration Insulin Human Lispro 0 - 12 unit 04/03/20 11:00 04/10/20 11:59 Insulin Lispro 100 Unit/Ml 3 Ml Vial SUBCUT 05/03/20 10:59 Not Given ACHS [facility] Protocol Levothyroxine Sodium 0.05 mg 04/05/20 06:00 04/10/20 05:52 Levothyroxine Sodium 0.05 Mg Tablet PO 05/05/20 05:59 0.05 mg Q6AM LING Administration Melatonin 10 mg 04/08/20 22:00 04/09/20 23:00 Melatonin 5 Mg Tablet PO 05/08/20 21:59 10 mg QHS LING Administration Metoclopramide HCl 5 mg 04/09/20 16:00 04/10/20 11:16 Metoclopramide Hcl 10 Mg Tablet PO 04/11/20 11:01 5 mg ACHS LING Administration Metoprolol Tartrate 25 mg 04/10/20 22:00 Metoprolol Tartrate 25 Mg Tablet PO 05/10/20 21:59 Q12 LING Simethicone 80 mg 04/08/20 13:17 04/09/20 13:32 Simethicone 80 Mg Tab.Chew PO 05/08/20 13:16 80 mg Q4HP PRN Administration FOR GAS Sodium Chloride 2.5 ml 04/03/20 06:00 04/10/20 05:52 Normal Saline Flush 2.5 Ml Disp.Syrin IV 05/03/20 05:59 2.5 ml Q8 LING Administration Zinc Sulfate 220 mg 04/03/20 10:00 04/10/20 11:18 Zinc Sulfate 220 Mg Capsule PO 05/03/20 09:59 Not Given DAILY LING Discontinued Medications Generic Name Dose Route Start Last Admin Trade Name Freq PRN Reason Stop Dose Admin Al Hydrox/Mg Hydrox/Simethicone 30 ml 04/08/20 18:00 Mag Hydrox/Al Hydrox/Simeth Susp 30 Ml Udcup PO 04/08/20 18:01 NOW ONE Albuterol/Ipratropium Confirm 04/10/20 08:24 04/10/20 08:43 Ipratropium/Albuterol 0.5-2.5 Mg/3 Ml Ampul Administered 04/10/20 08:25 Not Given Dose 3 ml NEB .STK-MED ONE Albuterol/Ipratropium 3 ml 04/10/20 09:30 04/10/20 08:42 Ipratropium/Albuterol 0.5-2.5 Mg/3 Ml Ampul NEB 04/10/20 09:31 3 ml RTNOW ONE Administration Alteplase, Recombinant 100 mg 04/10/20 12:00 Alteplase Inj 100 Mg Vial IV 04/10/20 12:01 NOW ONE Aspirin 325 mg 04/10/20 10:30 04/10/20 11:16 Aspirin 325 Mg Tablet PO 04/10/20 10:31 325 mg NOW ONE Administration Atorvastatin Calcium 40 mg 04/04/20 22:00 04/07/20 22:08 Atorvastatin Calcium 40 Mg Tablet PO 05/04/20 21:59 40 mg QHS LING Administration Atorvastatin Calcium 80 mg 04/10/20 11:30 04/10/20 11:45 Atorvastatin Calcium 80 Mg Tablet PO 04/10/20 11:31 80 mg NOW ONE Administration Azithromycin 500 mg 04/03/20 03:00 04/03/20 03:27 Azithromycin 250 Mg Tablet PO 04/03/20 03:01 500 mg NOW ONE Administration Dexamethasone Sodium Phosphate 6 mg 04/02/20 22:59 04/02/20 23:35 Dexamethasone Sod Phosphate Inj 4 Mg/1 Ml Vial IV 04/02/20 23:00 6 mg NOW ONE Administration Enoxaparin Sodium 95 mg 04/03/20 22:00 04/09/20 23:00 Enoxaparin Sodium Inj 100 Mg/1 Ml Disp.Syrin SUBCUT 05/03/20 21:59 95 mg Q12 LING Administration Enoxaparin Sodium 95 mg 04/03/20 03:00 04/03/20 03:27 Enoxaparin Sodium Inj 100 Mg/1 Ml Disp.Syrin SUBCUT 04/03/20 03:01 95 mg NOW ONE Administration Furosemide 20 mg 04/05/20 16:30 04/05/20 17:01 Furosemide Inj/Pf 20 Mg/2 Ml Sdv IV 04/05/20 16:31 20 mg NOW ONE Administration Furosemide 40 mg 04/07/20 15:30 04/07/20 18:58 Furosemide Inj/Pf 40 Mg/4 Ml Sdv IV 04/07/20 15:31 40 mg NOW ONE Administration Furosemide 40 mg 04/07/20 19:15 04/07/20 19:23 Furosemide Inj/Pf 40 Mg/4 Ml Sdv IV 04/07/20 19:16 Not Given NOW ONE Furosemide Confirm 04/07/20 18:57 04/07/20 19:22 Furosemide Inj/Pf 40 Mg/4 Ml Sdv Administered 04/07/20 18:58 Not Given Dose 40 mg .ROUTE .STK-MED ONE Furosemide Confirm 04/10/20 08:24 04/10/20 08:29 Furosemide Inj/Pf 40 Mg/4 Ml Sdv Administered 04/10/20 08:25 40 mg Dose Administration 40 mg .ROUTE .STK-MED ONE Furosemide 40 mg 04/10/20 09:30 04/10/20 08:40 Furosemide Inj/Pf 40 Mg/4 Ml Sdv IV 04/10/20 09:31 Not Given NOW ONE Heparin Sodium (Porcine) 7,700 unit 04/10/20 10:28 Heparin Sod (Porcine) 1,000 Unit/Ml 10 Ml Vial 80 unit/kg (7700 unit) 04/10/20 10:29 IV NOW ONE Ceftriaxone Sodium/Dextrose 1 gm in 50 mls @ 100 mls/hr 04/03/20 10:00 15:58 Rocephin Rtu 1 Gm/D5w 50 Ml Premix IV 04/07/20 10:29 Infused DAILY LING Infusion Remdesivir 200 mg/ Sodium 250 mls @ 250 mls/hr 04/07/20 10:00 04/07/20 15:58 Chloride IV 04/07/20 10:59 Infused NOW ONE Infusion Ivermectin 21 mg 04/03/20 03:02 04/03/20 05:57 Ivermectin 3 Mg Tablet PO 04/03/20 03:03 21 mg NOW ONE Administration Ivermectin Confirm 04/03/20 05:40 04/03/20 05:58 Ivermectin 3 Mg Tablet Administered 04/03/20 05:41 Not Given Dose 3 mg .ROUTE .STK-MED ONE Ivermectin 21 mg 04/05/20 08:00 04/05/20 08:37 Ivermectin 3 Mg Tablet PO 04/05/20 08:01 21 mg QAM LING Administration Magnesium Hydroxide Confirm 04/08/20 17:10 04/08/20 17:20 Magnesium Hydroxide Susp 30 Ml Udcup Administered 04/08/20 17:11 30 ml Dose Administration 30 ml .ROUTE .STK-MED ONE Magnesium Hydroxide 30 ml 04/08/20 18:30 04/08/20 19:12 Magnesium Hydroxide Susp 30 Ml Udcup PO 04/08/20 18:31 Not Given NOW ONE Melatonin 10 mg 04/07/20 22:45 04/07/20 23:06 Melatonin 5 Mg Tablet PO 04/07/20 22:46 10 mg NOW ONE Administration Morphine Sulfate Confirm 04/10/20 09:44 04/10/20 09:48 Morphine Sulfate 10 Mg/Ml Inj Administered 04/10/20 09:45 10 mg Dose Administration 10 mg .ROUTE .STK-MED ONE Morphine Sulfate 1 mg 04/10/20 11:00 04/10/20 10:33 Morphine Sulfate 10 Mg/Ml Inj IV 04/10/20 11:01 Not Given NOW ONE Promethazine HCl 12.5 mg 04/03/20 02:36 Promethazine Hcl Inj 25 Mg/1 Ml Vial IV 05/03/20 02:35 Q6HP PRN FOR NAUSEA/VOMITING Assessment & Plan - Diagnosis (1) STEMI (ST elevation myocardial infarction) Is this a current diagnosis for this admission?: Yes Plan: Very unfortunate 79-year-old male with prior history of coronary artery disease status post CABG in the s admitted with Covid pneumonia who acutely decompensated this morning when he developed increased work of breathing, acute shortness of breath and need for BiPAP support. His troponin is elevated at 10, his chest x-ray read by radiology was concerning for interstitial edema and his most recent EKG demonstrates [address] elevation in the inferior leads with reciprocal ischemic changes in the lateral leads. The case was consulted initially to [facility] and Dr. Atkins recommended thr ombolytics and stated that he would accept the patient if he failed thrombolytics. At this point, and regardless of his COVID-19 status, I believe he should be transferred to a tertiary facility for invasive assessment and management. Recommendations: -Thrombolytics as recommended by Dr. Atkins. -Aspirin and statin therapy per protocol. -Hold off on beta-bennett given his acute heart failure. -Agree with hospitalist, Dr. Albrecht in attempting to transfer the patient to a tertiary center.
[2020-04-10] MEDS ORDERED: CLOPIDOGREL BISULFATE 75 MG TABLET PO ONE (13:00)
--- NOTE | 2020-04-10 13:14 | Progress Note ---
Provider Note Provider Note: Asked by Dr. Vidal to take this patient in the ICU to administer tPA for STEMI. Pt is 79 yo, awake, alert, comfortable although he states some SOB on 100% CPAP. His tPA is infusing. Transport to [facility] 10 minutes out. No change in status from the floor. Dr. Anderson has seen, agrees with STEMI dx and need for tPA. Transport on their way.
[2020-04-10 13:31] VITALS: BP 106/74
--- NOTE | 2020-04-10 13:35 | PDOC TRANSFER SUMMARY ---
General Admission Date/PCP: 04/03/20 02:26 [facility] Admission Date: 04/03/20 Transfer Date: 04/10/20 Accepting Facility: [facility] Resuscitation Status: Full Code - Transfer Diagnosis (1) STEMI (ST elevation myocardial infarction) Is this a current diagnosis for this admission?: Yes Diagnosis Summary: -hx of CAD and CABG in - episode of desaturation at 9 am this morning, NO chest pain. Patient was on Lovenox therapeutic since admission - EKG ST elevation II, III, aVF - troponin 10 - CXR basilar predominant interstitial opacities, likely interstitial edema - received aspirin 325 - received plavix 75 - switched to heparin drip - received lipitor 80 - received tPA bolus transfer to [facility] accepting physician Dr. Chavira (2) Acute respiratory failure with hypoxia Is this a current diagnosis for this admission?: Yes Diagnosis Summary: - diagnosed with COVID 19 pneumonia Mar 2020 - admitted at [facility] Apr 03 - received Remdesivir Day 4 of 5 - On dexa 6 mg IV daily since admission - has been stable on HFNC until this morning when he desaturated - Currently on CPAP 15 100% FIO2 (3) Pneumonia due to COVID-19 virus Is this a current diagnosis for this admission?: Yes Diagnosis Summary: - diagnosed Mar 2020 - received remdesivir D4 of 5, ivermectin and decadron (4) Hx of CABG Is this a current diagnosis for this admission?: Yes Diagnosis Summary: - in triple bypass - on aspirin, lipitor, lisinopril (5) Hypertension Is this a current diagnosis for this admission?: Yes Diagnosis Summary: - on lisinopril (6) Pre-diabetes Is this a current diagnosis for this admission?: Yes (7) CAD (coronary artery disease) Is this a current diagnosis for this admission?: Yes Diagnosis Summary: - on aspirin, lisinopril and lipitor (8) Transaminitis Is this a current diagnosis for this admission?: Yes - Transfer Medications Home Medications: Atorvastatin Calcium [Lipitor 40 mg Tablet] 40 mg PO QHS 04/03/20 Krill/Om3/Dha/Epa/Om6/Lip/Astx [Krill Oil 1,000 Mg Softgel] 1 each PO DAILY 04/03/20 Levothyroxine Sodium [Synthroid 50 Mcg Tablet] 50 mcg PO DAILY 04/03/20 Lisinopril [Zestril] 40 mg PO DAILY 04/03/20 Multivit-Min/FA/Lycopen/Lutein [Centrum Silver Men Tablet] 1 each PO DAILY 04/03/20 Nitroglycerin [Nitrostat 0.4 mg (1/150 Gr) Tabs 25/Bottle] 1 tab SL Q5MP PRN 04/03/20 Ubidecarenone/Vit E Acet [Co Q-10 100 mg Softgel] 1 each PO DAILY 04/03/20 Vit C/E/Zn/Coppr/Lutein/Zeaxan [Preservision Areds 2 Softgel] 1 each PO BID 04/03/20 Transfer Medications: Current Medications Acetaminophen (Acetaminophen 325 Mg Tablet) 650 mg PO Q4HP PRN PRN Reason: FEVER >101 Stop: 05/03/20 02:35 Last Admin: 04/09/20 23:18 Dose: 650 mg Documented by: Ascorbic Acid (Ascorbic Acid 500 Mg Tablet) 500 mg PO BID [facility] Stop: 05/03/20 09:59 Last Admin: 04/10/20 11:17 Dose: 500 mg Documented by: Azithromycin (Azithromycin 250 Mg Tablet) 500 mg PO QHS [facility] Stop: 04/10/20 21:59 Last Admin: 04/09/20 23:00 Dose: 500 mg Documented by: Cholecalciferol (Cholecalciferol (D3) 1,000 Unit (25 Mcg) Tablet) 2,000 unit PO DAILY [facility] Stop: 05/03/20 09:59 Last Admin: 04/10/20 11:16 Dose: 2,000 unit Documented by: Dexamethasone Sodium Phosphate (Dexamethasone Sod Phos Inj 10 Mg/1 Ml Vial) 6 mg IV DAILY [facility] Stop: 05/03/20 09:59 Last Admin: 04/10/20 11:17 Dose: 6 mg Documented by: Dextrose (Dextrose 50%-Water 25 Gm/50 Ml Disp.Syrin) 12.5 gm IV PRN PRN; Protocol PRN Reason: FOR BG 50-69 IN ALERT PATIENT Stop: 05/03/20 08:23 Dextrose (Dextrose 50%-Water 25 Gm/50 Ml Disp.Syrin) 25 gm IV PRN PRN; Protocol PRN Reason: PER PROTOCOL Stop: 05/03/20 08:23 Famotidine (Famotidine 20 Mg Tablet) 20 mg PO Q12 [facility] Stop: 05/03/20 09:59 Last Admin: 04/10/20 11:16 Dose: 20 mg Documented by: Glucagon (Glucagon,Human Recomb 1 Mg Inj) 1 mg IM PRN PRN; Protocol PRN Reason: Evaluate for BG < 70 Stop: 05/03/20 08:23 Glucose (Dextrose 40% Gel 15 Gm Tube) 15 gm PO PRN PRN; Protocol PRN Reason: FOR BG 50-69 IN ALERT PATIENT Stop: 05/03/20 08:23 Glucose (Dextrose 40% Gel 15 Gm Tube) 30 gm PO PRN PRN; Protocol PRN Reason: FOR BG < 50 IN ALERT PATIENT Stop: 05/03/20 08:23 Remdesivir 100 mg/ Sodium (Chloride) 250 mls @ 250 mls/hr IV DAILY [facility] Stop: 04/11/20 10:59 Last Infusion: 04/10/20 12:26 Dose: Infused Documented by: Heparin Sodium/Dextrose (Heparin Rtu 25,000 Unit/250 Ml D5w Premix) 25,000 unit in 250 mls @ 0 mls/hr IV CONTINUOUS PRN; Protocol PRN Reason: THIS MED IS NOT "PRN" Stop: 05/10/20 10:27 Insulin Glargine (Insulin Glargine,Hum.Rec.Anlog 1,000 Unit/10 Ml Vial) 10 unit SUBCUT Q12 [facility] Stop: 05/08/20 09:59 Last Admin: 04/10/20 11:17 Dose: 10 unit Documented by: Insulin Human Lispro (Insulin Lispro 100 Unit/Ml 3 Ml Vial) 0 - 12 unit SUBCUT [facility]; Protocol Stop: 05/03/20 10:59 Last Admin: 04/10/20 11:59 Dose: Not Given Documented by: Levothyroxine Sodium (Levothyroxine Sodium 0.05 Mg Tablet) 0.05 mg PO Q6AM [facility] Stop: 05/05/20 05:59 Last Admin: 04/10/20 05:52 Dose: 0.05 mg Documented by: Melatonin (Melatonin 5 Mg Tablet) 10 mg PO QHS [facility] Stop: 05/08/20 21:59 Last Admin: 04/09/20 23:00 Dose: 10 mg Documented by: Metoclopramide HCl (Metoclopramide Hcl 10 Mg Tablet) 5 mg PO [facility] Stop: 04/11/20 11:01 Last Admin: 04/10/20 11:16 Dose: 5 mg Documented by: Metoprolol Tartrate (Metoprolol Tartrate 25 Mg Tablet) 25 mg PO Q12 [facility] Stop: 05/10/20 21:59 Simethicone (Simethicone 80 Mg Tab.Chew) 80 mg PO Q4HP PRN PRN Reason: FOR GAS Stop: 05/08/20 13:16 Last Admin: 04/09/20 13:32 Dose: 80 mg Documented by: Sodium Chloride (Normal Saline Flush 2.5 Ml Disp.Syrin) 2.5 ml IV Q8 [facility] Stop: 05/03/20 05:59 Last Admin: 04/10/20 05:52 Dose: 2.5 ml Documented by: Zinc Sulfate (Zinc Sulfate 220 Mg Capsule) 220 mg PO DAILY [facility] Stop: 05/03/20 09:59 Last Admin: 04/10/20 11:18 Dose: Not Given Documented by: - Allergies Allergies/Adverse Reactions: No Known Allergies Allergy (Unverified 04/04/20 02:48) Hospital Course Hospital Course: EDLL DUMONT is a 79 year old male with a history of hypertension, hyperlipidemia, CAD status post CABG in the who now presents with 5 days duration of fever, chills, generalized body aches. He states that he was tested for COVID-19 on 03/2018 and was positive. 3 days back he started having shortness of breath which progressively got worse. Also reports associated cough productive of scanty whitish sputum. He denies any chest pain, palpitation, nausea, vomiting, abdominal pain, diarrhea. Patient was found to be saturating 85% by EMS and currently is requiring 4 L intranasal oxygen to saturate 92 to 94%. He was admitted on apr 03, 2019 due to acute hypoxic resp failure. CXR showed infiltrates involving RUL consistent with atypical pneumonia. D dimer on admission 2.45 so patient wa splaced on full dose Lovenox 95 mg BID. Patient was put on HFNC started on steroids and received 2 dose of Ivermectin. Patient remained stable on floors with decreasing o2 needs. Patient noted to have lower extremity edema d3 of admission and was given 1 dose of lasix. This morning patient was noted to be tachypneic desaturating to 70s, no chest pain. CXR showed basilar predominant interstitial opacities likely interstitial edema. Trop increased to 10, EKG showed ST elevatiob II,III,AVF. Patient was given aspirin 325, lipitor 80, plavix 75 and tPA bolus 100 mg IV. Cardiology consulted and suggest transfer to tertiary care, [facility] was called and I spoke to Dr. Chavira [employer] operator who has accepted the patient. Physical Exam Vital Signs: Temp Pulse Resp BP Pulse Ox 98.4 F 110 H 37 H 137/73 H 97 04/10/20 11:52 04/10/20 11:52 04/10/20 13:03 04/10/20 11:52 04/10/20 13:03 Intake & Output 04/09/20 04/10/20 04/11/20 06:59 06:59 06:59 Intake Total 770 1130 250 Output Total 1000 1000 Balance -230 130 250 Weight 96.5 kg 96.5 kg General appearance: PRESENT: cooperative, mild distress, obese Head exam: PRESENT: atraumatic, normocephalic Eye exam: PRESENT: EOMI, PERRLA Mouth exam: PRESENT: moist Neck exam: PRESENT: full ROM Respiratory exam: PRESENT: rales, symmetrical, tachypnea Cardiovascular exam: PRESENT: +S1, +S2, tachycardia Pulses: PRESENT: +2 pedal pulses bilateral GI/Abdominal exam: PRESENT: normal bowel sounds, soft. ABSENT: rebound, tenderness Extremities exam: PRESENT: full ROM Musculoskeletal exam: PRESENT: full ROM Neurological exam: PRESENT: alert, awake, oriented to person, oriented to place, oriented to time, oriented to situation Psychiatric exam: PRESENT: normal mood Results Laboratory Results: 04/10/20 08:53 04/10/20 08:53 04/10/20 04/10/20 04/10/20 05:53 05:53 06:53 WBC 13.3 H RBC 4.58 Hgb 14.4 Hct 42.9 MCV 94 MCH 31.5 MCHC 33.6 RDW 13.7 Plt Count 253 Seg Neutrophils % Not Reportable Carbonic Acid HCO3/H2CO3 Ratio ABG pH ABG pCO2 ABG pO2 ABG HCO3 ABG O2 Saturation ABG Base Excess FiO2 Sodium Cancelled 135.4 L Potassium Cancelled 5.1 H Chloride Cancelled 101 Carbon Dioxide Cancelled 28 Anion Gap Cancelled 6 BUN Cancelled 37 H Creatinine Cancelled 1.02 Est GFR ( Amer) Cancelled > 60 Est GFR (Non-Af Amer) Cancelled Glucose Cancelled 169 H Calcium Cancelled 8.5 Total Bilirubin Cancelled 0.8 AST Cancelled 82 H Alkaline Phosphatase Cancelled 96 Total Protein Cancelled 6.1 L Albumin Cancelled 3.0 L 04/10/20 04/10/20 04/10/20 08:20 08:53 08:53 WBC 14.9 H RBC 4.78 Hgb 15.3 Hct 45.0 MCV 94 MCH 31.9 MCHC 33.9 RDW 13.6 Plt Count 257 Seg Neutrophils % Not Reportable Carbonic Acid Cancelled HCO3/H2CO3 Ratio Cancelled ABG pH Cancelled ABG pCO2 Cancelled ABG pO2 Cancelled ABG HCO3 Cancelled ABG O2 Saturation Cancelled ABG Base Excess Cancelled FiO2 Cancelled Sodium 135.4 L Potassium 5.1 H Chloride 98 Carbon Dioxide 27 Anion Gap 10 BUN 38 H Creatinine 0.99 Est GFR ( Amer) > 60 Est GFR (Non-Af Amer) Glucose 170 H Calcium 8.6 Total Bilirubin 1.0 AST 94 H Alkaline Phosphatase 105 Total Protein 6.9 Albumin 3.5 04/10/20 09:25 WBC RBC Hgb Hct MCV MCH MCHC RDW Plt Count Seg Neutrophils % Carbonic Acid 0.84 L HCO3/H2CO3 Ratio 23:1 ABG pH 7.47 H ABG pCO2 27.9 L ABG pO2 40.4 L* ABG HCO3 19.9 L ABG O2 Saturation 80.0 L ABG Base Excess -2.1 FiO2 93% Sodium Potassium Chloride Carbon Dioxide Anion Gap BUN Creatinine Est GFR ( Amer) Est GFR (Non-Af Amer) Glucose Calcium Total Bilirubin AST Alkaline Phosphatase Total Protein Albumin 04/10/20 04/10/20 08:53 08:53 Troponin I 10.800 NT-Pro-B Natriuret Pep 2290 H Impressions: Chest X-Ray 04/10/20 00:00 IMPRESSION: 1. Basilar predominant interstitial opacities, likely interstitial edema. Atypical infection not excluded. Improve right upper lobe aeration from prior exam. 2. Prior CABG. Plan Discharge Plan: Transfer to [facility] for possible cath. Accepting physician Dr. Chavira Time Spent: Greater than 30 Minutes
[2020-04-10] MEDS ORDERED: METOPROLOL TARTRATE 25 MG TABLET PO SCH (22:00)
--- NOTE | 2020-04-10 22:08 | EKG REPORT ---
SEVERITY:- ABNORMAL ECG - SINUS TACHYCARDIA INFERIOR ME AGE INDETERMINATE, CANNOT R/O ACUTE INF ME REPOL ABNRM SUGGESTS ISCHEMIA, DIFFUSE LEADS MINIMAL ST ELEVATION, INFERIOR LEADS : Confirmed by: Alethea Mendoaz 10-Apr-2020 22:07:30
== END 2020-04-10 14:35 | disposition short-term general hospital (02) | DRG 177 ==
LOC: ER 22:46 → EH 04-03 02:26 → 3S 04-03 08:02 → ICU 04-10 12:44
PROVIDERS: ADMIT Student in an Organized Health Care Education/Training Program; ATTEND Internal Medicine
PROC: XW033E5 Introduction of Remdesivir Anti-infective into Peripheral Vein, Percutaneous Approach, New Technology Group 5 (ICD-10-PCS; 2020-04-07)
PROC: 3E03317 Introduction of Other Thrombolytic into Peripheral Vein, Percutaneous Approach (ICD-10-PCS; principal; 2020-04-10)
PROC: 5A09357 Assistance with Respiratory Ventilation, Less than 24 Consecutive Hours, Continuous Positive Airway Pressure (ICD-10-PCS; 2020-04-10)
DX: U07.1 COVID-19 (principal); I21.3 ST elevation (STEMI) myocardial infarction of unspecified site; J12.82 Pneumonia due to coronavirus disease 2019; J96.01 Acute respiratory failure with hypoxia; E87.1 Hypo-osmolality and hyponatremia; I10 Essential (primary) hypertension; R73.03 Prediabetes; E78.5 Hyperlipidemia, unspecified; Z95.1 Presence of aortocoronary bypass graft; Z87.891 Personal history of nicotine dependence; I25.10 Atherosclerotic heart disease of native coronary artery without angina pectoris; Z79.899 Other long term (current) drug therapy; R74.01 Elevation of levels of liver transaminase levels
CPT/HCPCS: 36415; 36600; 71045; 80053; 80074; 81001; 82306; 82728; 82803; 82962; 83036; 83615; 83880; 84484; 85025; 85027; 85379; 85610; 85730; 86140; 87070; 93005; 93010; 94660; 96374; 99285; J0696; J1100; J1650; J1815; J1940; J2270; J2997; J3490; J7050